=== PATIENT | female | born 1940 | race Caucasian/White ===

== ENCOUNTER 2018-03-18 14:49 | Inpatient (IN) | payer MEDICARE, MEDICAID ==
[2018-03-18] VITALS (32 sets, daily range): BP systolic 65–133; BP diastolic 45–80; BMI 19.8
[~2018-03-18] VITALS: Ht 154.9 cm; Wt 53.7 kg
--- NOTE | ~2018-03-18 | MORECARE ---
CASE MANAGEMENT DISCHARGE SUMMARY PATIENT: PRASANNA MCHUGH UNIT: [id number] ADM DATE: 03/18/18 AGE: 77 : 41 SEX: F ROOM/BED: D.2310 AUTHOR: WALKER,DOC PHYSICIAN: REFERRING PHYSICIAN: TJ PARRY MD DATE OF SERVICE: 03/20/18 Discharge Plan Patient Name: PRASANNA MCHUGH Facility: [facility]:[place] : 1940 Planned Disposition: Home Anticipated Discharge Date: Discharge Date: Expected LOS: Initial Reviewer: [email or web address] Initial Review Date: 03/18/2018 Generated: 03/20/18 4:16 pm Comments DCP- Discharge Planning Updated by [email or web address]: Tracy James on 03/20/18 2:[address] Patient Name: PRASANNA MCHUGH Admission Status: ER Accout number: [id number] Admission Date: 03-18-2018 : 1940 Admission Diagnosis:SEPSIS, UNSPECIFIED ORGANISM Attending: TJ PARRY Current LOS: 2 Anticipated DC Date: Planned Disposition: Home Primary Insurance: MEDICARE A & B Discharge Planning Comments: CM met with patient at bedside. Patient plans to return to her home with her son. Patient states that she lives with her son and family. No family here at this time. Patient states that she did have Home Health prior to admission but doesn't recall provider name. Patient denies any discharge needs at this time. CM will continue to follow and assist with discharge planning / needs. [employer] Layout: Tracy James DCPIA - Discharge Planning Initial Assessment Updated by [id number]: Tracy James on 03/20/18 3:07 pm * Is the patient Alert and Oriented? Yes * How many steps to enter\exit or inside your home? * PCP Dr. Mcgregor * Pharmacy Unknown - patient can't remember * Preadmission Environment Home with Family * ADLs Partial Dependent * Partial ADLs (Assistance needed) Bathing * Equipment Walker Wheelchair * List name and contact numbers for known caregivers / representatives who currently or will assist patient after discharge: Wanda Mcgovern - daughter [phone] Shalini -daughter - [phone] Demarcus son - [phone] Ayden hunter- [phone] * Verbal permission to speak to the caregivers and representatives has been obtained from the patient. N/A * Community resources currently utilized Home Health * Please name any agencies selected above. unknown provider * Additional services required to return to the preadmission environment? No * Can the patient safely return to the preadmission environment? Yes * Has this patient been hospitalized within the prior 30 days at any hospital? No Last DP export: 03/20/18 2:08 Patient Name: PRASANNA MCHUGH Page [id number] at 1516 All edits/amendments must be made on the electronic document DICTATION DATE: 03/20/181514 CENTRAL OFFICE WORKER: BAYRON 03/20/181514 RPT#: [id number] DC DATE: STATUS: ADM IN [facility] [address] [place] [address] END OF REPORT
--- NOTE | ~2018-03-18 | CN ---
PATIENT NAME:PRASANNA BLOOM MEDICAL RECORD: [id number] : 42 LOCATION:[facility]ael[address].2310 ADMIT DATE: 03/18/18 ACCOUNT: [id number] CONSULTING PHYSICIAN: VIC HARRIS MD REFERRING PHYSICIAN: TJ PARRY MD DATE OF CONSULTATION: 03/19/2018 CONSULT REQUESTING PHYSICIAN: Jagdeep Hare MD REASON FOR CONSULTATION: Pneumonia, pleural effusion, septic shock. HISTORY OF PRESENT ILLNESS: Ms. Bloom is a 77-year-old female who has mental status changes and confused. The patient was brought in from outside facility for advanced care. The patient had decreased mentation. Also, she was found out she has UTI and significant leukocytosis. The patient was hypotensive and bradycardic, required 2 pressors. Now, she is a bit more awake and alert, but still very confused. REVIEW OF SYSTEMS: Mainly in the history of present illness. PAST MEDICAL HISTORY: The detail is not obtainable. She has a history of dementia. PERSONAL AND SOCIAL HISTORY: The detail is not obtainable. FAMILY HISTORY: Noncontributory. PHYSICAL EXAMINATION: GENERAL: Now, the patient is lying comfortable. She is not in acute distress. VITAL SIGNS: The blood pressure is 98-101/55, pulse is 57, respiration is 19, temperature is 98.2, and SpO2 97% on 3 liters nasal cannula. HEENT: Conjunctivae are pink. Sclerae are not icteric. NECK: Supple, no JVD. CHEST: There are bilateral crackles. No wheezing. HEART: Rate and rhythm is regular, normal sound, no murmur. ABDOMEN: Soft, bowel sounds present. No hepatosplenomegaly. RECTAL: Deferred. EXTREMITIES: No cyanosis, no clubbing. There are 2+ pedal edema. CENTRAL NERVOUS SYSTEM: The patient is awake and alert. There are no obvious cranial nerve abnormalities, but the patient is confused. LABORATORY DATA: CBC: WBC 12.7, hemoglobin 11.4, hematocrit 32, platelet count is 93. Chemistry: Sodium 145, potassium 3.5, BUN is 11, creatinine 0.9. Lactic acid is 8.6. Ammonia level was 17. The albumin is 2.1. IMAGING: Chest radiograph, there are bilateral basilar infiltrate. There is a small left pleural effusion. The CT scan of the head was negative for any acute process. IMPRESSION: 1. Acute hypoxic respiratory failure. 2. Septic shock. 3. Urinary tract infection. 4. Bilateral pneumonia. 5. Community acquired pneumonia, possible aspiration pneumonia with the patient CONSULT REPORT [id number] PRASANNA BLOOM low mentation. 6. Lactic acidosis. 7. Left pleural effusion, possible parapneumonic; congestive heart failure, possible chronic systolic dysfunction. 8. Protein calorie malnutrition. RECOMMENDATION: 1. Continue vancomycin and Zosyn. The ID is already consulted. 2. IV fluid resuscitation. 3. Continue the pressor dopamine and Levophed to keep the systolic blood pressure above 90. 4. Follow up on the cultures. 5. DVT prophylaxis. 6. Follow up labs and chest radiograph. Discussed with Dr. Hare and Dr. Brunner. Thank you for involving me in the care of Ms. Bloom. TRANSINT:[id number] Voice Confirmation ID: [id number] DOCUMENT ID: [id number] VIC HARRIS MD at 1339 CC: [id number] DICTATION DATE: 03/19/18 1431 PREKINDERGARTEN TEACHER: 03/19/18 1646 ADM IN [facility] [address] [place] [address]
--- NOTE | ~2018-03-18 | MORECARE ---
CASE MANAGEMENT DISCHARGE SUMMARY PATIENT: PRASANNA MCHUGH UNIT: [id number] ADM DATE: 03/18/18 AGE: 77 : 41 SEX: F ROOM/BED: D.8303 AUTHOR: WALKER,DOC PHYSICIAN: REFERRING PHYSICIAN: TJ PARRY MD DATE OF SERVICE: 04/01/18 Discharge Plan Patient Name: PRASANNA MCHUGH Facility: [facility]:[place] : 1940 Planned Disposition: Home Anticipated Discharge Date: 03/31/18 Discharge Date: 03/31/2018 Expected LOS: 13 Initial Reviewer: [email or web address] Initial Review Date: 03/18/2018 Generated: 04/01/18 12:14 pm Comments DCP- Discharge Planning Updated by [email or web address]: Luz Saini on 03/31/18 9:[address] Patient Name: PRASANNA MCHUGH Encounter No: [id number] : 1940 Primary Insurance: MEDICARE A & B Anticipated DC Date: 03-31-2018 Planned Disposition: Home External Planned Provider: : DCP follow-up note: Patient and family in agreement with discharge plan. PATIENT TO GO HOME WITH DAUGHTER WHO LIVES IN [facility]. RN WILL NOTIFY DAUGHTER OF PATIENT'S DC TODAY. Case management will follow and assist as needed. Luz Saini DCP- Discharge Planning Updated by [email or web address]: Gt Rosas on 03/28/18 1:[address] Patient Name: PRASANNA MCHUGH Encounter No: [id number] : 1940 Primary Insurance: MEDICARE A & B Anticipated DC Date: Planned Disposition: INPATIENT REHAB PLANNED EXTERNAL PROVIDER: INPATIENT REHAB DCP follow-up note: CM RECEIVED TELEPHONE MESSAGE FROM SAMMIE TA, ; MESSAGE REPORTS SAMMIE TO BE PT'S DAUGHTER AND PT WILL BE GOING HOME WITH DAUGHTER TO [place] AT DISCHARGE. CM SPOKE TO PT IN ROOM WHO REPORTS AGREEMENT WITH PLAN AND THAT SHE WAS LIVING WITH HER SON PRIOR TO ADMISSION BUT SHE AND FAMILY WANT PT BACK WITH DAUGHTER IN [place], DAUGHTER TO PICK HER UP. PT REPORTS HER DAUGHTER IS "ALMOST A NURSE" AND HAS TAKEN CARE OF HER BEFORE AND WILL DO IT AGAIN UNTIL PT IS WELL ENOUGH TO GO HOME AGAIN. PT REPORTS IT IS OK TO DISCUSS HER CARE, TREATMENT AND DISCHARGE PLANNING WITH SAMMIE TA. CM CALLED SAMMIE FREIRE, ; SAMMIE REPORTS PT WILL DISCHARGE HOME WITH HER, DISCHARGE ADDRESS IS [address] [place] [address], [address]. SAMMIE WILL LINK TRAINER MAINTENANCE MAN PT AT DISCHARGE, IS A FOOD AND BEVERAGE SERVER AND WILL BE TAKING CARE OF PT 24 HOURS 7 DAYS PER WEEK. THEY WILL CONTINUE TO TAKE PT BACK TO HER PCP IN [facility]. PT'S DAUGHTER REQUESTS INPATIENT REHAB AT [facility] PRIOR TO PT'S DISCHARGE HOME WITH DAUGHTER. CM SPOKE TO PT IN ROOM WHO IS WILLING FOR REHAB AT INPATIENT REHAB PRIOR TO DISCHARGE HOME WITH HER DAUGHTER ADN FEELS SHE CAN PARTICIPATE IN THREE HOURS OF PROGRESSIVE THERAPY PER DAY. ORDER RECEIVED FOR INPATIENT REHAB PRESCREENING. CM WAITING COMPLETION OF INPATIENT REHAB PRESCREENING AND ADMISSION DETERMINATION FROM INPATIENT REHAB. Gt Rosas, CASE MANAGEMENT DCP- Discharge Planning Updated by [id number]: Gt Rosas on 03/28/18 9:[address] Patient Name: PRASANNA MCHUGH Encounter No: [id number] : 1940 Primary Insurance: MEDICARE A & B Anticipated DC Date: Planned Disposition: Home DCP follow-up note: CM RECEIVED CHART WHICH INDICATED PT HAD HOME HEALTH PRIOR TO HOSPITAL STAY PER CM NOTE. CM CALLED [employer], [employer] AND [employer] HOME HEALTH AGENCIES THAT SERVICE [facility], NONE HAD RECORD OF PT. CM CALLED [facility], , SPOKE TO NELLY WHO INFORMED CM THAT THEY DID HAVE PT RECENTLY BUT PT HAD BEEN DISCHARGED FROM HOME HEALTH CARE. [facility] WOULD ACCEPT BACK IF THERE IS A NEED AND WITH NEW HOME HEALTH ORDERS. PT PLANS TO DISCHARGE HOME WITH SON, SHE DOES NOT CURRENTLY HAVE HOME HEALTH SERVICES AND WILL REQUIRE NEW ORDERS AND ARRANGEMENT WITH [facility] IF HOME HEALTH SERVICES ARE NEEDED. CM TO CONTINUE TO FOLLOW AND ASSIST IF NEEDED. Gt Rosas, CASE MANAGEMENT DCP- Discharge Planning Updated by [email or web address]: Tracy James on 03/20/18 2:[address] Patient Name: PRASANNA MCHUGH Admission Status: ER Accout number: [id number] Admission Date: 03-18-2018 : 1940 Admission Diagnosis:SEPSIS, UNSPECIFIED ORGANISM Attending: TJ PARRY Current LOS: 2 Anticipated DC Date: Planned Disposition: Home Primary Insurance: MEDICARE A & B Discharge Planning Comments: CM met with patient at bedside. Patient plans to return to her home with her son. Patient states that she lives with her son and family. No family here at this time. Patient states that she did have Home Health prior to admission but doesn't recall provider name. Patient denies any discharge needs at this time. CM will continue to follow and assist with discharge planning / needs. Bakery Team Member: Tracy aJmes DCPIA - Discharge Planning Initial Assessment Updated by [email or web address]: Tracy James on 03/20/18 3:07 pm * Is the patient Alert and Oriented? Yes * How many steps to enter\\exit or inside your home? * PCP Dr. Mcgregor * Pharmacy Unknown - patient can't remember * Preadmission Environment Home with Family * ADLs Partial Dependent * Partial ADLs (Assistance needed) Bathing * Equipment Walker Wheelchair * List name and contact numbers for known caregivers / representatives who currently or will assist patient after discharge: Wanda Mcgovern - daughter [phone] Sammie -daughter - [phone] Kristopher- son - [phone] Ayden - son [phone] * Verbal permission to speak to the caregivers and representatives has been obtained from the patient. N/A * Community resources currently utilized Home Health * Please name any agencies selected above. unknown provider * Additional services required to return to the preadmission environment? No * Can the patient safely return to the preadmission environment? Yes * Has this patient been hospitalized within the prior 30 days at any hospital? No Coverage Notice Reviewer: [id number] Bijan Saini Notice Issued Date-Time: 03/31/2018 10:39 Notice Type: IM Discharge Notice Notice Delivered To: Patient Relationship to Patient: Self Rn Embedded Name: Delivery Method: HAND - Hand Delivered Renetta Days: Prior Verbal Notification: Recipient Understood Notice: Yes Recipient Signature: Yes Med Rec Note Co-signed by Attending: Coverage Notice Comment: IM SERVED. Last DP export: 03/31/18 9:44 Patient Name: PRASANNA MCHUGH Page 00107 at 1114 All edits/amendments must be made on the electronic document DICTATION DATE: 04/01/181112 RETIREMENT PLAN COUNSELOR: BAYRON 04/01/181112 RPT#: [id number] DC DATE:03/31/18 STATUS: DIS IN [address] [place] [address] END OF REPORT
--- NOTE | ~2018-03-18 | MORECARE ---
CASE MANAGEMENT DISCHARGE SUMMARY PATIENT: PRASANNA MCHUGH UNIT: [id number] ADM DATE: 03/18/18 AGE: 77 : 41 SEX: F ROOM/BED: D.2310 AUTHOR: SANDRA CARDOSO PHYSICIAN: REFERRING PHYSICIAN: TJ PARRY MD DATE OF SERVICE: 03/20/18 Discharge Plan Patient Name: PRASANNA MCHUGH [facility] [facility] 1940 Planned Disposition: Home Anticipated Discharge Date: Discharge Date: Expected LOS: Initial Reviewer: [email or web address] Initial Review Date: 03/18/2018 Generated: 03/20/18 4:08 pm DCPIA - Discharge Planning Initial Assessment Updated by [email or web address]: Tracy James on 03/20/18 3:07 pm * Is the patient Alert and Oriented? Yes * How many steps to enter\exit or inside your home? * PCP Dr. Mcgregor * Pharmacy Unknown - patient can't remember * Preadmission Environment Home with Family * ADLs Partial Dependent * Partial ADLs (Assistance needed) Bathing * Equipment Walker Wheelchair * List name and contact numbers for known caregivers / representatives who currently or will assist patient after discharge: Wanda Mcgovern - daughter [phone] Shalini -daughter - [phone] Kristopher son [phone] Ayden son [phone] * Verbal permission to speak to the caregivers and representatives has been obtained from the patient. N/A * Community resources currently utilized Home Health * Please name any agencies selected above. unknown provider * Additional services required to return to the preadmission environment? No * Can the patient safely return to the preadmission environment? Yes * Has this patient been hospitalized within the prior 30 days at any hospital? No Patient Name: PRASANNA MCHUGH Page 68437 at 1508 All edits/amendments must be made on the electronic document DICTATION DATE: 03/20/18 1507 WOOD BUFFER: BAYRON 03/20/18 1507 RPT#: [id number] DC DATE: STATUS: ADM IN [facility] [address] [place] [address] END OF REPORT
--- NOTE | ~2018-03-18 | MORECARE ---
CASE MANAGEMENT DISCHARGE SUMMARY PATIENT: PRASANNA MCHUGH UNIT: [id number] ADM DATE: 03/18/18 AGE: 77 : 41 SEX: F ROOM/BED: D.4541 AUTHOR: WALKER,DOC PHYSICIAN: REFERRING PHYSICIAN: TJ PARRY MD DATE OF SERVICE: 03/28/18 Discharge Plan Patient Name: PRASANNA MCHUGH Facility: [facility]:[place] : 1940 Planned Disposition: Home Anticipated Discharge Date: Discharge Date: Expected LOS: Initial Reviewer: [email or web address] Initial Review Date: 03/18/2018 Generated: 03/28/18 11:19 am Comments DCP- Discharge Planning Updated by [email or web address]: Gt Rosas on 03/28/18 9:[address] Patient Name: PRASANNA MCHUGH Encounter No: [id number] : 1940 Primary Insurance: MEDICARE A & B Anticipated DC Date: Planned Disposition: Home DCP follow-up note: CM RECEIVED CHART WHICH INDICATED PT HAD HOME HEALTH PRIOR TO HOSPITAL STAY PER CM NOTE. CM CALLED [employer], [employer] AND [employer] HOME HEALTH AGENCIES THAT SERVICE [facility], NONE HAD RECORD OF PT. CM CALLED [facility], , SPOKE TO NELLY WHO INFORMED CM THAT THEY DID HAVE PT RECENTLY BUT PT HAD BEEN DISCHARGED FROM HOME HEALTH CARE. [facility] WOULD ACCEPT BACK IF THERE IS A NEED AND WITH NEW HOME HEALTH ORDERS. PT PLANS TO DISCHARGE HOME WITH SON, SHE DOES NOT CURRENTLY HAVE HOME HEALTH SERVICES AND WILL REQUIRE NEW ORDERS AND ARRANGEMENT WITH [facility] IF HOME HEALTH SERVICES ARE NEEDED. CM TO CONTINUE TO FOLLOW AND ASSIST IF NEEDED. Gt Rosas CASE GEOR[place]ES DCP- Discharge Planning Updated by [email or web address]: Tracy James on 03/20/18 2:[address] Patient Name: PRASANNA MCHUGH Admission Status: ER Accout number: [id number] Admission Date: 03-18-2018 : 1940 Admission Diagnosis:SEPSIS, UNSPECIFIED ORGANISM Attending: TJ PARYR Current LOS: 2 Anticipated DC Date: Planned Disposition: Home Primary Insurance: MEDICARE A & B Discharge Planning Comments: CM met with patient at bedside. Patient plans to return to her home with her son. Patient states that she lives with her son and family. No family here at this time. Patient states that she did have Home Health prior to admission but doesn't recall provider name. Patient denies any discharge needs at this time. CM will continue to follow and assist with discharge planning / needs. Clothing Cutter: Tracy James DCPIA - Discharge Planning Initial Assessment Updated by [email or web address]: Tracy James on 03/20/18 3:07 pm * Is the patient Alert and Oriented? Yes * How many steps to enter\exit or inside your home? * PCP Dr. Mcgregor * Pharmacy Unknown - patient can't remember * Preadmission Environment Home with Family * ADLs Partial Dependent * Partial ADLs (Assistance needed) Bathing * Equipment Walker Wheelchair * List name and contact numbers for known caregivers / representatives who currently or will assist patient after discharge: Wanda Mcgovern - daughter [phone] Shalini -daughter - [phone] Kristopher- son - [phone] Ayden son [phone] * Verbal permission to speak to the caregivers and representatives has been obtained from the patient. N/A * Community resources currently utilized Home Health * Please name any agencies selected above. unknown provider * Additional services required to return to the preadmission environment? No * Can the patient safely return to the preadmission environment? Yes * Has this patient been hospitalized within the prior 30 days at any hospital? No Last DP export: 03/20/18 2:16 Patient Name: PRASANNA MCHUGH Page 61857 at 1019 All edits/amendments must be made on the electronic document DICTATION DATE: 03/28/18 1019 WORKERS COMPENSATION MANAGER: BAYRON 03/28/18 1019 RPT#: [id number] PR DATE: STATUS: ADM IN [facility] [address] [place] [address] END OF REPORT
--- NOTE | ~2018-03-18 | MORECARE ---
CASE MANAGEMENT DISCHARGE SUMMARY PATIENT: PRASANNA MCHUGH UNIT: [id number] ADM DATE: 03/18/18 AGE: 77 : 41 SEX: F ROOM/BED: D.6796 AUTHOR: WALKER,DOC PHYSICIAN: REFERRING PHYSICIAN: TJ PARRY MD DATE OF SERVICE: 03/31/18 Discharge Plan Patient Name: PRASANNA MCHUGH Facility: [facility]:[place] : 1940 Planned Disposition: Home Anticipated Discharge Date: 03/31/18 Discharge Date: Expected LOS: 13 Initial Reviewer: [id number] Initial Review Date: 03/18/2018 Generated: 03/31/18 11:44 am Comments DCP- Discharge Planning Updated by [email or web address]: Luz Saini on 03/31/18 9:[address] Patient Name: PRASANNA MCHUGH Encounter No: [id number] : 1940 Primary Insurance: MEDICARE A & B Anticipated DC Date: 03-31-2018 Planned Disposition: Home External Planned Provider: : DCP follow-up note: Patient and family in agreement with discharge plan. PATIENT TO GO HOME WITH DAUGHTER WHO LIVES IN [facility]. RN WILL NOTIFY DAUGHTER OF PATIENT'S DC TODAY. Case management will follow and assist as needed. Luz Saini DCP- Discharge Planning Updated by [id number]: Gt Rosas on 03/28/18 1:[address] Patient Name: PRASANNA MCHUGH Encounter No: [id number] : 1940 Primary Insurance: MEDICARE A & B Anticipated DC Date: Planned Disposition: INPATIENT REHAB PLANNED EXTERNAL PROVIDER: [facility] INPATIENT REHAB DCP follow-up note: CM RECEIVED TELEPHONE MESSAGE FROM SAMMIE TA, ; MESSAGE REPORTS SAMMIE TO BE PT'S DAUGHTER AND PT WILL BE GOING HOME WITH DAUGHTER TO [place] AT DISCHARGE. CM SPOKE TO PT IN ROOM WHO REPORTS AGREEMENT WITH PLAN AND THAT SHE WAS LIVING WITH HER SON PRIOR TO ADMISSION BUT SHE AND FAMILY WANT PT BACK WITH DAUGHTER IN [place], DAUGHTER TO PICK HER UP. PT REPORTS HER DAUGHTER IS "ALMOST A NURSE" AND HAS TAKEN CARE OF HER BEFORE AND WILL DO IT AGAIN UNTIL PT IS WELL ENOUGH TO GO HOME AGAIN. PT REPORTS IT IS OK TO DISCUSS HER CARE, TREATMENT AND DISCHARGE PLANNING WITH SAMMIE TA. CM CALLED SAMMIE FREIRE, ; SAMMIE REPORTS PT WILL DISCHARGE HOME WITH HER, DISCHARGE ADDRESS IS [address] [place] [address], [address]. SAMMIE WILL LONG CHAIN BEAMER PT AT DISCHARGE, IS A LABORATORY TECHNOLOGIST AND WILL BE TAKING CARE OF PT 24 HOURS 7 DAYS PER WEEK. THEY WILL CONTINUE TO TAKE PT BACK TO HER PCP IN [facility]. PT'S DAUGHTER REQUESTS INPATIENT REHAB AT [place] PRIOR TO PT'S DISCHARGE HOME WITH DAUGHTER. CM SPOKE TO PT IN ROOM WHO IS WILLING FOR REHAB AT [facility] INPATIENT REHAB PRIOR TO DISCHARGE HOME WITH HER DAUGHTER ADN FEELS SHE CAN PARTICIPATE IN THREE HOURS OF PROGRESSIVE THERAPY PER DAY. ORDER RECEIVED FOR INPATIENT REHAB PRESCREENING. CM WAITING COMPLETION OF INPATIENT REHAB PRESCREENING AND ADMISSION DETERMINATION FROM [facility] INPATIENT REHAB. Gt Rosas, CASE MANAGEMENT DCP- Discharge Planning Updated by [id number]: Gt Rosas on 03/28/18 9:[address] Patient Name: PRASANNA MCHUGH Encounter No: [id number] : 1940 Primary Insurance: MEDICARE A & B Anticipated DC Date: Planned Disposition: Home DCP follow-up note: CM RECEIVED CHART WHICH INDICATED PT HAD HOME HEALTH PRIOR TO HOSPITAL STAY PER CM NOTE. CM CALLED [facility], [facility] AND [facility] AGENCIES THAT SERVICE [facility], NONE HAD RECORD OF PT. CM CALLED [facility], , SPOKE TO NELLY WHO INFORMED CM THAT THEY DID HAVE PT RECENTLY BUT PT HAD BEEN DISCHARGED FROM HOME HEALTH CARE. [facility] WOULD ACCEPT BACK IF THERE IS A NEED AND WITH NEW HOME HEALTH ORDERS. PT PLANS TO DISCHARGE HOME WITH SON, SHE DOES NOT CURRENTLY HAVE HOME HEALTH SERVICES AND WILL REQUIRE NEW ORDERS AND ARRANGEMENT WITH [facility] IF HOME HEALTH SERVICES ARE NEEDED. CM TO CONTINUE TO FOLLOW AND ASSIST IF NEEDED. Gt Rosas, CASE MANAGEMENT DCP- Discharge Planning Updated by [id number]: Tracy James on 03/20/18 2:[address] Patient Name: PRASANNA MCHUGH Admission Status: ER Accout number: [id number] Admission Date: 03-18-2018 : 1940 Admission Diagnosis:SEPSIS, UNSPECIFIED ORGANISM Attending: TJ PARRY Current LOS: 2 Anticipated DC Date: Planned Disposition: Home Primary Insurance: MEDICARE A & B Discharge Planning Comments: CM met with patient at bedside. Patient plans to return to her home with her son. Patient states that she lives with her son and family. No family here at this time. Patient states that she did have Home Health prior to admission but doesn't recall provider name. Patient denies any discharge needs at this time. CM will continue to follow and assist with discharge planning / needs. Immigration Consultant: Tracy James DCPIA - Discharge Planning Initial Assessment Updated by [email or web address]: Tracy James on 03/20/18 3:07 pm * Is the patient Alert and Oriented? Yes * How many steps to enter\\exit or inside your home? * PCP Dr. Mcgregor * Pharmacy Unknown - patient can't remember * Preadmission Environment Home with Family * ADLs Partial Dependent * Partial ADLs (Assistance needed) Bathing * Equipment Walker Wheelchair * List name and contact numbers for known caregivers / representatives who currently or will assist patient after discharge: Wanda Mcgovern - daughter [phone] Sammie -daughter - [phone] Kristopher- son - [phone] Ayden son [phone] * Verbal permission to speak to the caregivers and representatives has been obtained from the patient. N/A * Community resources currently utilized Home Health * Please name any agencies selected above. unknown provider * Additional services required to return to the preadmission environment? No * Can the patient safely return to the preadmission environment? Yes * Has this patient been hospitalized within the prior 30 days at any hospital? No Coverage Notice Reviewer: [id number] Bijan Saini Notice Issued Date-Time: 03/31/2018 10:39 Notice Type: IM Discharge Notice Notice Delivered To: Patient Relationship to Patient: Self [employer] Chemistry Teacher Name: Delivery Method: HAND - Hand Delivered Renetta Days: Prior Verbal Notification: Recipient Understood Notice: Yes Recipient Signature: Yes Med Rec Note Co-signed by Attending: Coverage Notice Comment: IM SERVED. Last DP export: 03/28/18 1:44 Patient Name: PRASANNA MCHUGH Page [id number] at 1045 All edits/amendments must be made on the electronic document DICTATION DATE: 03/31/181043 PERMASTONE MECHANIC: BAYRON 03/31/181043 RPT#: [id number] DC DATE: STATUS: ADM IN [facility] [address] [place] [address] END OF REPORT
--- NOTE | ~2018-03-18 | MORECARE ---
CASE MANAGEMENT DISCHARGE SUMMARY PATIENT: PRASANNA MCHUGH UNIT: [id number] ADM DATE: 03/18/18 AGE: 77 : 41 SEX: F ROOM/BED: D.8090 AUTHOR: WALKER,DOC PHYSICIAN: REFERRING PHYSICIAN: TJ PARRY MD DATE OF SERVICE: 03/28/18 Discharge Plan Patient Name: PRASANNA MCHUGH [facility] [facility] 1940 Planned Disposition: Inpatient Rehab Anticipated Discharge Date: Discharge Date: Expected LOS: Initial Reviewer: [email or web address] Initial Review Date: 03/18/2018 Generated: 03/28/18 3:44 pm Comments DCP- Discharge Planning Updated by [id number]: Gt Rosas on 03/28/18 1:[address] Patient Name: PRASANNA MCHUGH Encounter No: [id number] : 1940 Primary Insurance: MEDICARE A & B Anticipated DC Date: Planned Disposition: INPATIENT REHAB PLANNED EXTERNAL PROVIDER: [facility] INPATIENT REHAB DCP follow-up note: CM RECEIVED TELEPHONE MESSAGE FROM SAMMIE TA, ; MESSAGE REPORTS SAMMIE TO BE PT'S DAUGHTER AND PT WILL BE GOING HOME WITH DAUGHTER TO [place] AT DISCHARGE. CM SPOKE TO PT IN ROOM WHO REPORTS AGREEMENT WITH PLAN AND THAT SHE WAS LIVING WITH HER SON PRIOR TO ADMISSION BUT SHE AND FAMILY WANT PT BACK WITH DAUGHTER IN [place], DAUGHTER TO PICK HER UP. PT REPORTS HER DAUGHTER IS "ALMOST A NURSE" AND HAS TAKEN CARE OF HER BEFORE AND WILL DO IT AGAIN UNTIL PT IS WELL ENOUGH TO GO HOME AGAIN. PT REPORTS IT IS OK TO DISCUSS HER CARE, TREATMENT AND DISCHARGE PLANNING WITH SAMMIE JDLUCY. CM CALLED SAMMIE MOUNA, ; SAMMIE REPORTS PT WILL DISCHARGE HOME WITH HER, DISCHARGE ADDRESS IS [address] [place] [address], [address]. 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 THEY WILL CONTINUE TO TAKE PT BACK TO HER PCP IN [facility]. PT'S DAUGHTER REQUESTS INPATIENT REHAB AT [place] PRIOR TO PT'S DISCHARGE HOME WITH DAUGHTER. CM SPOKE TO PT IN ROOM WHO IS WILLING FOR REHAB AT [facility] INPATIENT REHAB PRIOR TO DISCHARGE HOME WITH HER DAUGHTER ADN FEELS SHE CAN PARTICIPATE IN THREE HOURS OF PROGRESSIVE THERAPY PER DAY. ORDER RECEIVED FOR INPATIENT REHAB PRESCREENING. CM WAITING COMPLETION OF INPATIENT REHAB PRESCREENING AND ADMISSION DETERMINATION FROM [facility] INPATIENT REHAB. Gt Rosas CASE MANAGEMENT DCP- Discharge Planning Updated by [id number]: Gt Rosas on 03/28/18 9:[address] Patient Name: PRASANNA MCHUGH Encounter No: [id number] : 1940 Primary Insurance: MEDICARE A & B Anticipated DC Date: Planned Disposition: Home DCP follow-up note: CM RECEIVED CHART WHICH INDICATED PT HAD HOME HEALTH PRIOR TO HOSPITAL STAY PER CM NOTE. CM CALLED [facility], [facility] AND [facility] HOME [facility] AGENCIES THAT SERVICE [facility], NONE HAD RECORD OF PT. CM CALLED [facility], , SPOKE TO NELLY WHO INFORMED CM THAT THEY DID HAVE PT RECENTLY BUT PT HAD BEEN DISCHARGED FROM HOME HEALTH CARE. [facility] WOULD ACCEPT BACK IF THERE IS A NEED AND WITH NEW HOME HEALTH ORDERS. PT PLANS TO DISCHARGE HOME WITH SON, SHE DOES NOT CURRENTLY HAVE HOME HEALTH SERVICES AND WILL REQUIRE NEW ORDERS AND ARRANGEMENT WITH [facility] IF HOME HEALTH SERVICES ARE NEEDED. CM TO CONTINUE TO FOLLOW AND ASSIST IF NEEDED. SILAS Roman MANAGEMENT DCP- Discharge Planning Updated by [id number]: Tracy James on 03/20/18 2:[address] Patient Name: PRASANNA MCHUGH Admission Status: ER Accout number: [id number] Admission Date: 03-18-2018 : 1940 Admission Diagnosis:SEPSIS, UNSPECIFIED ORGANISM Attending: TJ PARRY Current LOS: 2 Anticipated DC Date: Planned Disposition: Home Primary Insurance: MEDICARE A & B Discharge Planning Comments: CM met with patient at bedside. Patient plans to return to her home with her son. Patient states that she lives with her son and family. No family here at this time. Patient states that she did have Home Health prior to admission but doesn't recall provider name. Patient denies any discharge needs at this time. CM will continue to follow and assist with discharge planning / needs. Continuous Absorption Process Operator: Tracy James DCPIA - Discharge Planning Initial Assessment Updated by [email or web address]: Tracy James on 03/20/18 3:07 pm * Is the patient Alert and Oriented? Yes * How many steps to enter\\exit or inside your home? * PCP Dr. Mcgregor * Pharmacy Unknown - patient can't remember * Preadmission Environment Home with Family * ADLs Partial Dependent * Partial ADLs (Assistance needed) Bathing * Equipment Walker Wheelchair * List name and contact numbers for known caregivers / representatives who currently or will assist patient after discharge: Wanda Mcgovern - daughter [phone] Sammie -daughter - [phone] Kristopher- son - [phone] Ayden - son- [phone] * Verbal permission to speak to the caregivers and representatives has been obtained from the patient. N/A * Community resources currently utilized Home Health * Please name any agencies selected above. unknown provider * Additional services required to return to the preadmission environment? No * Can the patient safely return to the preadmission environment? Yes * Has this patient been hospitalized within the prior 30 days at any hospital? No Last DP export: 03/28/18 9:19 Patient Name: PRASANNA MCHUGH Page [phone] at 1444 All edits/amendments must be made on the electronic document DICTATION DATE: 03/28/181443 HAND SANDER: BAYRON 03/28/181443 RPT#: [id number] OR DATE: STATUS: ADM IN [facility] [address] [place] [address] END OF REPORT
[2018-03-18 16:33] LABS: BASOPHILS 0.1 % (0-2); EOSINOPHILS 0.6 % (0-7); HEMATOCRIT 35.1 % (36.0-48.0); HEMOGLOBIN 11.6 g/dL (12-16); IMMATURE GRANULOCYTES 0.4 % (0-5); LYMPHOCYTES 17.4 % (15-50); MCH 35.5 pg (26.0-34.0); MCV 107.3 fL (80.0-100.0); MONOCYTES 7.4 % (2-11); NEUTROPHILS 74.1 % (40-80); PLATELET COUNT 67 10x3/uL (130-400); RBC 3.27 10x6/uL (4.00-5.40); RDW 13.5 % (11.5-14.5); WBC 6.9 10x3/uL (4.8-10.8)
[2018-03-18 16:35] LABS: PLATELET ESTIMATE DECREASED
[2018-03-18 16:46] LABS: INR 1.57 (0.85-1.17); PROTIME 18.2 SECONDS (11.6-15.0)
[2018-03-18 16:47] LABS: APTT 54.2 SECONDS (22.8-39.4)
[2018-03-18 18:41] LABS: ALBUMIN 1.5 g/dL (3.4-5.0); ALKALINE PHOSPHATASE 45 U/L (46-116); ALT (SGPT) 16 U/L (10-68); BILIRUBIN - TOTAL 0.91 mg/dL (0.2-1.3); CALC OSMOLALITY 294 mosm/kg (275-300); CARBON DIOXIDE 23.4 mmol/L (21.0-32.0); CHLORIDE - SERUM 105 mmol/L (98-107); CREATINE KINASE 305 UL (21-215); CREATININE - SERUM 1.4 mg/dL (0.6-1.3); GLUCOSE 197 mg/dL (74-106); POTASSIUM - SERUM 3.9 mmol/L (3.5-5.1); PROTEIN - SERUM 6.2 g/dL (6.4-8.2); SODIUM 142 mmol/L (136-145); UREA NITROGEN 31 mg/dL (7-18); eGFR NON AFRICAN AMERICAN 39 mL/min (90-120)
[2018-03-18 18:42] LABS: CKMB 5.5 U/L (0.0-3.6)
[2018-03-18 18:43] LABS: TROPONIN-I 0.505 ng/mL (0.000-0.060)
[2018-03-18 21:10] LABS: APPEARANCE CLOUDY (CLEAR); BILIRUBIN NEGATIVE (NEGATIVE); COLOR YELLOW (YELLOW); GLUCOSE NEGATIVE (NEGATIVE); KETONE NEGATIVE (NEGATIVE); NITRITE NEGATIVE (NEGATIVE); PROTEIN NEGATIVE (NEGATIVE); SPECIFIC GRAVITY 1.015 (1.005-1.020); UROBILINOGEN NORMAL (NORMAL)
[2018-03-18 21:12] LABS: BACTERIA MANY /hpf (NONE SEEN); RED CELLS - URINE 25-50 /hpf (0-5); WHITE CELLS - URINE >50 /hpf (0-5)
[2018-03-18 21:13] LABS: YEAST >1+ /hpf (NONE SEEN)
[2018-03-19] VITALS (92 sets, daily range): BP systolic 89–131; BP diastolic 42–70; BMI 21.7
[2018-03-19 03:43] LABS: BASOPHILS 0.1 % (0-2); EOSINOPHILS 0 % (0-7); HEMOGLOBIN 11.4 g/dL (12-16); IMMATURE GRANULOCYTES 0.2 % (0-5); LYMPHOCYTES 22.7 % (15-50); MCH 36.5 pg (26.0-34.0); MCHC 35.6 g/dL (31.0-37.0); MEAN PLATELET VOLUME 9.9 fL (7.4-10.4); RBC 3.12 10x6/uL (4.00-5.40); RDW 13.2 % (11.5-14.5)
[2018-03-19 03:51] LABS: MCV 102.6 fL (80.0-100.0); PLATELET COUNT 93 10x3/uL (130-400); WBC 12.7 10x3/uL (4.8-10.8)
[2018-03-19 04:02] LABS: ANION GAP 11.9 mmol/L (8-16); BILIRUBIN - TOTAL 0.95 mg/dL (0.2-1.3); CALCIUM 7.1 mg/dL (8.5-10.1); CARBON DIOXIDE 27.6 mmol/L (21.0-32.0); POTASSIUM - SERUM 3.5 mmol/L (3.5-5.1); PROTEIN - SERUM 6.7 g/dL (6.4-8.2)
[2018-03-19 04:03] LABS: ALBUMIN 2.1 g/dL (3.4-5.0); CREATININE - SERUM 0.9 mg/dL (0.6-1.3)
[2018-03-19] MEDS ORDERED: CARBIDOPA-LEVO1 EACH PO (19:21)
[2018-03-20] VITALS (92 sets, daily range): BP systolic 74–125; BP diastolic 42–520; Ht 154.9 cm; Wt 53.7 kg
[2018-03-20 04:26] LABS: BASOPHILS 0.1 % (0-2); EOSINOPHILS 0.1 % (0-7); HEMATOCRIT 35.1 % (36.0-48.0); HEMOGLOBIN 11.7 g/dL (12-16); IMMATURE GRANULOCYTES 0.3 % (0-5); LYMPHOCYTES 26.7 % (15-50); MCH 34.8 pg (26.0-34.0); MCHC 33.3 g/dL (31.0-37.0); MCV 104.5 fL (80.0-100.0); MEAN PLATELET VOLUME 9.9 fL (7.4-10.4); MONOCYTES 5.2 % (2-11); NEUTROPHILS 67.6 % (40-80); PLATELET COUNT 79 10x3/uL (130-400); RBC 3.36 10x6/uL (4.00-5.40); RDW 13.1 % (11.5-14.5)
[2018-03-20 04:41] LABS: WBC 7.1 10x3/uL (4.8-10.8)
[2018-03-20 04:56] LABS: ALBUMIN 1.9 g/dL (3.4-5.0); ANION GAP 9.4 mmol/L (8-16); BILIRUBIN - TOTAL 0.72 mg/dL (0.2-1.3); CALCIUM 7.1 mg/dL (8.5-10.1); CARBON DIOXIDE 30.4 mmol/L (21.0-32.0); CREATININE - SERUM 0.9 mg/dL (0.6-1.3); MAGNESIUM - SERUM 1.2 mg/dL (1.8-2.4); PHOSPHOROUS 2.1 mg/dL (2.5-4.9); POTASSIUM - SERUM 3.8 mmol/L (3.5-5.1); THYROID STIMULATING HORMONE 1.61 uIU/mL (0.36-3.74)
[2018-03-21] VITALS (42 sets, daily range): BP systolic 84–126; BP diastolic 48–67
[2018-03-22] VITALS (55 sets, daily range): BP systolic 76–149; BP diastolic 42–77
[2018-03-22 03:14] LABS: BASOPHILS 0.2 % (0-2); EOSINOPHILS 0.7 % (0-7); HEMATOCRIT 32.9 % (36.0-48.0); HEMOGLOBIN 11.3 g/dL (12-16); IMMATURE GRANULOCYTES 0.5 % (0-5); LYMPHOCYTES 29.7 % (15-50); MCH 34.3 pg (26.0-34.0); MCHC 34.3 g/dL (31.0-37.0); MEAN PLATELET VOLUME 9.4 fL (7.4-10.4); MONOCYTES 7.7 % (2-11); NEUTROPHILS 61.2 % (40-80); PLATELET COUNT 76 10x3/uL (130-400); RBC 3.29 10x6/uL (4.00-5.40); RDW 12.5 % (11.5-14.5); WBC 5.5 10x3/uL (4.8-10.8)
[2018-03-22 03:38] LABS: ALBUMIN 1.5 g/dL (3.4-5.0); ALKALINE PHOSPHATASE 63 U/L (46-116); ALT (SGPT) 17 U/L (10-68); BILIRUBIN - TOTAL 0.92 mg/dL (0.2-1.3); CALC OSMOLALITY 274 mosm/kg (275-300); CALCIUM 7.8 mg/dL (8.5-10.1); CARBON DIOXIDE 27.6 mmol/L (21.0-32.0); CHLORIDE - SERUM 103 mmol/L (98-107); CREATININE - SERUM 0.6 mg/dL (0.6-1.3); GLUCOSE 133 mg/dL (74-106); MAGNESIUM - SERUM 1.5 mg/dL (1.8-2.4); PHOSPHOROUS 2.9 mg/dL (2.5-4.9); POTASSIUM - SERUM 3.6 mmol/L (3.5-5.1); PRO BNP 3159 pg/mL (0-450); PROTEIN - SERUM 6.2 g/dL (6.4-8.2); SODIUM 137 mmol/L (136-145); UREA NITROGEN 11 mg/dL (7-18); eGFR NON AFRICAN AMERICAN > 90 mL/min (90-120)
[2018-03-23] VITALS (24 sets, daily range): BP systolic 72–148; BP diastolic 41–77
[2018-03-23 03:21] LABS: BASOPHILS 0.2 % (0-2); EOSINOPHILS 1.3 % (0-7); HEMATOCRIT 35.1 % (36.0-48.0); HEMOGLOBIN 12.3 g/dL (12-16); IMMATURE GRANULOCYTES 0.3 % (0-5); MCH 34.7 pg (26.0-34.0); MCV 99.2 fL (80.0-100.0); MEAN PLATELET VOLUME 9.2 fL (7.4-10.4); MONOCYTES 7.9 % (2-11); NEUTROPHILS 55.3 % (40-80); RBC 3.54 10x6/uL (4.00-5.40); RDW 12.2 % (11.5-14.5); WBC 6.1 10x3/uL (4.8-10.8)
[2018-03-23 03:29] LABS: PLATELET COUNT 100 10x3/uL (130-400)
[2018-03-23 03:38] LABS: CALC OSMOLALITY 272 mosm/kg (275-300); CALCIUM 8.5 mg/dL (8.5-10.1); CARBON DIOXIDE 32.4 mmol/L (21.0-32.0); CHLORIDE - SERUM 101 mmol/L (98-107); CREATININE - SERUM 0.6 mg/dL (0.6-1.3); GLUCOSE 122 mg/dL (74-106); POTASSIUM - SERUM 3.3 mmol/L (3.5-5.1); SODIUM 137 mmol/L (136-145); eGFR NON AFRICAN AMERICAN > 90 mL/min (90-120)
[2018-03-23 03:44] LABS: UREA NITROGEN 8 mg/dL (7-18)
[2018-03-24] VITALS (58 sets, daily range): BP systolic 72–134; BP diastolic 33–77
[2018-03-24 04:39] LABS: BASOPHILS 0.2 % (0-2); EOSINOPHILS 1.6 % (0-7); HEMATOCRIT 31.4 % (36.0-48.0); HEMOGLOBIN 10.7 g/dL (12-16); IMMATURE GRANULOCYTES 0.2 % (0-5); LYMPHOCYTES 42.6 % (15-50); MCH 34.4 pg (26.0-34.0); MCHC 34.1 g/dL (31.0-37.0); MEAN PLATELET VOLUME 9.3 fL (7.4-10.4); MONOCYTES 11.3 % (2-11); NEUTROPHILS 44.1 % (40-80); PLATELET COUNT 110 10x3/uL (130-400); RBC 3.11 10x6/uL (4.00-5.40); RDW 12.7 % (11.5-14.5)
[2018-03-24 04:47] LABS: WBC 4.3 10x3/uL (4.8-10.8)
[2018-03-24 04:58] LABS: ANION GAP 7.4 mmol/L (8-16); CALCIUM 8.5 mg/dL (8.5-10.1); CARBON DIOXIDE 33.7 mmol/L (21.0-32.0)
[2018-03-24 05:00] LABS: CREATININE - SERUM 0.8 mg/dL (0.6-1.3); POTASSIUM - SERUM 4.1 mmol/L (3.5-5.1)
[2018-03-25] VITALS (61 sets, daily range): BP systolic 62–137; BP diastolic 45–79
[2018-03-25 04:22] LABS: BASOPHILS 0.5 % (0-2); EOSINOPHILS 2.1 % (0-7); HEMATOCRIT 31.6 % (36.0-48.0); IMMATURE GRANULOCYTES 0.3 % (0-5); LYMPHOCYTES 50.9 % (15-50); MCH 34.7 pg (26.0-34.0); MCHC 34.8 g/dL (31.0-37.0); MCV 99.7 fL (80.0-100.0); MEAN PLATELET VOLUME 9.3 fL (7.4-10.4); MONOCYTES 11.4 % (2-11); NEUTROPHILS 34.8 % (40-80); PLATELET COUNT 119 10x3/uL (130-400); RBC 3.17 10x6/uL (4.00-5.40); RDW 12.7 % (11.5-14.5); WBC 3.8 10x3/uL (4.8-10.8)
[2018-03-25 04:30] LABS: CALCIUM 8.2 mg/dL (8.5-10.1); CARBON DIOXIDE 31.7 mmol/L (21.0-32.0); CHLORIDE - SERUM 106 mmol/L (98-107); CREATININE - SERUM 0.7 mg/dL (0.6-1.3); SODIUM 144 mmol/L (136-145); eGFR NON AFRICAN AMERICAN 86 mL/min (90-120)
[2018-03-25 04:36] LABS: CALC OSMOLALITY 287 mosm/kg (275-300); GLUCOSE 116 mg/dL (74-106); UREA NITROGEN 13 mg/dL (7-18)
[2018-03-26] VITALS (40 sets, daily range): BP systolic 61–145; BP diastolic 38–95
[2018-03-26 04:42] LABS: HEMATOCRIT 24.8 % (36.0-48.0); HEMOGLOBIN 8.6 g/dL (12-16); MCH 34.5 pg (26.0-34.0); MCHC 34.7 g/dL (31.0-37.0); MCV 99.6 fL (80.0-100.0); MEAN PLATELET VOLUME 8.9 fL (7.4-10.4); PLATELET COUNT 105 10x3/uL (130-400); RBC 2.49 10x6/uL (4.00-5.40); RDW 12.7 % (11.5-14.5); WBC 2.9 10x3/uL (4.8-10.8)
[2018-03-26 04:46] LABS: ALBUMIN 2.3 g/dL (3.4-5.0); CALC OSMOLALITY 287 mosm/kg (275-300); CALCIUM 7.9 mg/dL (8.5-10.1); CARBON DIOXIDE 30.2 mmol/L (21.0-32.0); CHLORIDE - SERUM 106 mmol/L (98-107); CREATININE - SERUM 0.7 mg/dL (0.6-1.3); GLUCOSE 120 mg/dL (74-106); MAGNESIUM - SERUM 1.2 mg/dL (1.8-2.4); PHOSPHOROUS 2.8 mg/dL (2.5-4.9); SODIUM 144 mmol/L (136-145); UREA NITROGEN 12 mg/dL (7-18); eGFR NON AFRICAN AMERICAN 86 mL/min (90-120)
[2018-03-26 04:57] LABS: POTASSIUM - SERUM 3.1 mmol/L (3.5-5.1)
[2018-03-26 05:44] LABS: EOSINOPHILS 3 % (0-7); LYMPHOCYTES 49 % (15-50); MONOCYTES 5 % (2-11); NEUTROPHILS 41 % (40-80); PLATELET ESTIMATE DECREASED
[2018-03-26 07:30] LABS: BASOPHILS 0.7 % (0-2); EOSINOPHILS 2.4 % (0-7); HEMATOCRIT 26.6 % (36.0-48.0); HEMOGLOBIN 9.1 g/dL (12-16); LYMPHOCYTES 43.4 % (15-50); MCH 34.5 pg (26.0-34.0); MCHC 34.2 g/dL (31.0-37.0); MCV 100.8 fL (80.0-100.0); MEAN PLATELET VOLUME 9.2 fL (7.4-10.4); MONOCYTES 12.8 % (2-11); NEUTROPHILS 40.7 % (40-80); RBC 2.64 10x6/uL (4.00-5.40); RDW 12.9 % (11.5-14.5)
[2018-03-26 07:31] LABS: PLATELET COUNT 83 10x3/uL (130-400)
[2018-03-27] VITALS (15 sets, daily range): BP systolic 96–148; BP diastolic 48–86
[2018-03-27 04:20] LABS: BASOPHILS 0.6 % (0-2); EOSINOPHILS 3.1 % (0-7); HEMATOCRIT 29.5 % (36.0-48.0); HEMOGLOBIN 9.9 g/dL (12-16); IMMATURE GRANULOCYTES 0.3 % (0-5); LYMPHOCYTES 44.6 % (15-50); MCH 32.4 pg (26.0-34.0); MCHC 33.6 g/dL (31.0-37.0); MEAN PLATELET VOLUME 9.5 fL (7.4-10.4); MONOCYTES 9.7 % (2-11); NEUTROPHILS 41.7 % (40-80); PLATELET COUNT 99 10x3/uL (130-400); RBC 3.06 10x6/uL (4.00-5.40); RDW 17.1 % (11.5-14.5); WBC 3.5 10x3/uL (4.8-10.8)
[2018-03-27 04:29] LABS: CALC OSMOLALITY 286 mosm/kg (275-300); CALCIUM 8.5 mg/dL (8.5-10.1); CARBON DIOXIDE 27.8 mmol/L (21.0-32.0); CHLORIDE - SERUM 108 mmol/L (98-107); CREATININE - SERUM 0.7 mg/dL (0.6-1.3); GLUCOSE 115 mg/dL (74-106); MAGNESIUM - SERUM 2.1 mg/dL (1.8-2.4); POTASSIUM - SERUM 4.1 mmol/L (3.5-5.1); SODIUM 144 mmol/L (136-145); UREA NITROGEN 11 mg/dL (7-18); eGFR NON AFRICAN AMERICAN 86 mL/min (90-120)
[2018-03-27 05:15] LABS: MCV 96.4 fL (80.0-100.0)
[2018-03-28 00:29] VITALS: BP 126/56
[2018-03-28 04:00] VITALS: BP 126/66
[2018-03-28 07:37] VITALS: BP 107/47
[2018-03-28 12:12] VITALS: BP 112/45
[2018-03-28 16:15] VITALS: BP 92/48
[2018-03-28 20:45] VITALS: BP 103/54
[2018-03-29 00:17] VITALS: BP 119/49
[2018-03-29 05:04] VITALS: BP 129/46
[2018-03-29 06:30] LABS: BASOPHILS 0.4 % (0-2); EOSINOPHILS 1.4 % (0-7); HEMATOCRIT 30.8 % (36.0-48.0); HEMOGLOBIN 10.4 g/dL (12-16); IMMATURE GRANULOCYTES 0.2 % (0-5); LYMPHOCYTES 44.6 % (15-50); MCH 32.5 pg (26.0-34.0); MCHC 33.8 g/dL (31.0-37.0); MCV 96.3 fL (80.0-100.0); MEAN PLATELET VOLUME 9.6 fL (7.4-10.4); MONOCYTES 6.3 % (2-11); NEUTROPHILS 47.1 % (40-80); PLATELET COUNT 113 10x3/uL (130-400); RDW 15.5 % (11.5-14.5); WBC 5.1 10x3/uL (4.8-10.8)
[2018-03-29 06:44] LABS: CALC OSMOLALITY 278 mosm/kg (275-300); CALCIUM 8.5 mg/dL (8.5-10.1); CARBON DIOXIDE 26.4 mmol/L (21.0-32.0); CHLORIDE - SERUM 107 mmol/L (98-107); CREATININE - SERUM 0.6 mg/dL (0.6-1.3); GLUCOSE 92 mg/dL (74-106); POTASSIUM - SERUM 3.4 mmol/L (3.5-5.1); SODIUM 141 mmol/L (136-145); UREA NITROGEN 8 mg/dL (7-18); eGFR NON AFRICAN AMERICAN > 90 mL/min (90-120)
[2018-03-29 09:10] VITALS: BP 119/50
[2018-03-29 12:14] VITALS: BP 92/56
[2018-03-29 16:18] VITALS: BP 114/58
[2018-03-29 20:00] VITALS: BP 129/69
[2018-03-30] VITALS: BP 142/73
[2018-03-30 04:00] VITALS: BP 135/54
[2018-03-30 05:28] LABS: BASOPHILS 0.5 % (0-2); EOSINOPHILS 2.7 % (0-7); HEMATOCRIT 31.4 % (36.0-48.0); HEMOGLOBIN 10.7 g/dL (12-16); IMMATURE GRANULOCYTES 0.2 % (0-5); LYMPHOCYTES 42.5 % (15-50); MCH 33.1 pg (26.0-34.0); MCHC 34.1 g/dL (31.0-37.0); MCV 97.2 fL (80.0-100.0); MEAN PLATELET VOLUME 9.4 fL (7.4-10.4); MONOCYTES 6.6 % (2-11); NEUTROPHILS 47.5 % (40-80); PLATELET COUNT 111 10x3/uL (130-400); RBC 3.23 10x6/uL (4.00-5.40); RDW 15.1 % (11.5-14.5); WBC 4.4 10x3/uL (4.8-10.8)
[2018-03-30 06:10] LABS: CALC OSMOLALITY 278 mosm/kg (275-300); CALCIUM 8.6 mg/dL (8.5-10.1); CARBON DIOXIDE 26.6 mmol/L (21.0-32.0); CHLORIDE - SERUM 106 mmol/L (98-107); CREATININE - SERUM 0.6 mg/dL (0.6-1.3); GLUCOSE 81 mg/dL (74-106); POTASSIUM - SERUM 3.6 mmol/L (3.5-5.1); SODIUM 141 mmol/L (136-145); UREA NITROGEN 10 mg/dL (7-18); eGFR NON AFRICAN AMERICAN > 90 mL/min (90-120)
[2018-03-30 08:07] VITALS: BP 126/73
[2018-03-30 11:32] VITALS: BP 115/51
[2018-03-30 15:39] VITALS: BP 110/53
[2018-03-30 20:30] VITALS: BP 120/48
[2018-03-31 00:30] VITALS: BP 131/69
[2018-03-31 04:30] VITALS: BP 126/61
[2018-03-31 04:49] LABS: BASOPHILS 0.5 % (0-2); EOSINOPHILS 2.7 % (0-7); HEMATOCRIT 30.1 % (36.0-48.0); HEMOGLOBIN 10.3 g/dL (12-16); LYMPHOCYTES 45.7 % (15-50); MCHC 34.2 g/dL (31.0-37.0); MCV 96.5 fL (80.0-100.0); MEAN PLATELET VOLUME 9.6 fL (7.4-10.4); MONOCYTES 7.3 % (2-11); NEUTROPHILS 43.8 % (40-80); PLATELET COUNT 107 10x3/uL (130-400); RBC 3.12 10x6/uL (4.00-5.40); WBC 3.7 10x3/uL (4.8-10.8)
[2018-03-31 05:03] LABS: CALC OSMOLALITY 277 mosm/kg (275-300); CALCIUM 8.4 mg/dL (8.5-10.1); CARBON DIOXIDE 23.3 mmol/L (21.0-32.0); CHLORIDE - SERUM 107 mmol/L (98-107); CREATININE - SERUM 0.5 mg/dL (0.6-1.3); GLUCOSE 98 mg/dL (74-106); SODIUM 140 mmol/L (136-145); UREA NITROGEN 9 mg/dL (7-18); eGFR NON AFRICAN AMERICAN > 90 mL/min (90-120)
[2018-03-31 05:04] LABS: POTASSIUM - SERUM 4.2 mmol/L (3.5-5.1)
[2018-03-31 08:16] VITALS: BP 105/58
[2018-03-31] MEDS ORDERED: PROTONIX40 MG PO (08:35)
[2018-03-31] MEDS ORDERED: IPRAT-ALBUT 0.5-3 ML UPD (08:35)
== END 2018-03-31 15:23 | disposition home or self-care (01) | DRG 871 ==
LOC: D.ER 14:49 → D.EDHOLD 15:37 → D.ICU 15:37 → D.M2 03-27 18:04
PROVIDERS: Family Medicine; Internal Medicine Nephrology; Internal Medicine Pulmonary Disease
PROC: 5A09357 Assistance with Respiratory Ventilation, Less than 24 Consecutive Hours, Continuous Positive Airway Pressure (ICD-10-PCS; principal; 2018-03-18)
DX: A41.9 Sepsis, unspecified organism (principal); R65.21 Severe sepsis with septic shock; J18.9 Pneumonia, unspecified organism; J96.01 Acute respiratory failure with hypoxia; G93.41 Metabolic encephalopathy; E43 Unspecified severe protein-calorie malnutrition; I50.31 Acute diastolic (congestive) heart failure; E87.2 Acidosis; N17.9 Acute kidney failure, unspecified; B37.49 Other urogenital candidiasis; J44.9 Chronic obstructive pulmonary disease, unspecified; I10 Essential (primary) hypertension; Z68.21 Body mass index [BMI] 21.0-21.9, adult; I11.0 Hypertensive heart disease with heart failure; I48.91 Unspecified atrial fibrillation; E83.42 Hypomagnesemia; E87.6 Hypokalemia; G20 Parkinson's disease; F02.80 Dementia in other diseases classified elsewhere, unspecified severity, without behavioral disturbance, psychotic disturbance, mood disturbance, and anxiety; R53.81 Other malaise; D64.9 Anemia, unspecified

== ENCOUNTER 2018-07-13 02:43 | Inpatient (IN) | payer MEDICARE ==
[~2018-07-13] VITALS: Ht 157.5 cm; Wt 49.1 kg
[2018-07-13] VITALS (29 sets, daily range): BP systolic 88–174; BP diastolic 42–78; BMI 21.2; BMI 20.5
--- NOTE | ~2018-07-13 | CN ---
PATIENT NAME:PRASANNA BLOOM MEDICAL RECORD: [id number] : 42 LOCATION:[facility].2305 ADMIT DATE: 07/13/18 ACCOUNT: [id number] CONSULTING PHYSICIAN: VIC HARRIS MD REFERRING PHYSICIAN: CHARLENE SAMS DO DATE OF CONSULTATION: 07/13/2018 CONSULT REQUESTING PHYSICIAN: Charlene Sams DO REASON FOR CONSULTATION: Bilateral pneumonia, pleural effusion. HISTORY OF PRESENT ILLNESS: Ms. Bloom is a 77-year-old female who was brought in over here from [place] for respiratory distress, hypotension, and bilateral pneumonia with pleural effusion. Initially, she required pressors to keep her blood pressure above 90. Now, she has improved. The patient is a very poor historian. History was taken by talking to the nursing staff and reviewing the patient's note. The patient does have pressure sores. REVIEW OF SYSTEMS: As in history of present illness. PAST MEDICAL HISTORY: 1. Dementia. 2. Possible COPD with a history of smoking and nicotine dependence in the past. 3. Hypertension. 4. CHF, chronic diastolic dysfunction. 5. Atrial fibrillation. 6. Pressure sores. 7. Osteoporosis. 8. Recurrent UTI. PAST SURGICAL HISTORY: Hysterectomy. ALLERGIES: SHE IS ALLERGIC TO SULFA AND CODEINE. MEDICATIONS: [employer] is reviewed. PERSONAL AND SOCIAL HISTORY: The patient is an ex-smoker. She is a nondrinker. FAMILY HISTORY: Noncontributory. PHYSICAL EXAMINATION: GENERAL: Now, the patient is lying comfortably in bed. She is not in acute distress. VITAL SIGNS: The blood pressure 113/55, pulse is 80, respiration is 20, temperature 99, and SpO2 is 95% on 3 liters nasal cannula. HEENT: Conjunctivae are pink. Sclerae are not icteric. NECK: Supple, no JVD. CHEST: The chest excursion is minimal on both sides. There are bilateral crackles. No wheezing. HEART: Rhythm regular, normal sound, no murmur. ABDOMEN: Soft, bowel sounds present. No hepatosplenomegaly. RECTAL: Deferred. EXTREMITIES: No cyanosis, no clubbing, no pedal edema. SKIN: She has a pressure sore. CONSULT REPORT [id number] PRASANNA BLOOM IMAGING: CT scan of the chest: There is bilateral infiltrate, left more than the right. There is a pleural effusion. LABORATORY DATA: CBC: WBC 13.1, hemoglobin 8.5, hematocrit 25.2, the platelet count is 42. Chemistry: Sodium 140, potassium is 4, BUN is 25, creatinine 0.9. IMPRESSION: 1. Acute hypoxic respiratory failure. 2. Bilateral pneumonia, left more than the right. Possible community-acquired pneumonia. 3. Pleural effusion. 4. Acute exacerbation of COPD. 5. Septic shock. 6. Gastroesophageal reflux disease. 7. Anemia. 8. Hypoalbuminemia. RECOMMENDATION: 1. Continue present empiric antibiotic. 2. Supplemental oxygen. 3. I will check the proBNP. 4. Follow up labs and chest radiograph. 5. Albuterol/ipratropium nebulizer. 6. Brovana/budesonide nebulizer. 7. Speech evaluation. Discussed with RN, RT, and Dr. Hooks. Dr. Sams, thank you for involving me in the care of Ms. Bloom. The critical care time is 50 minutes. TRANSINT:[id number] Voice Confirmation ID: [id number] DOCUMENT ID: [id number] VIC HARRIS MD CC: [id number] DICTATION DATE: 07/13/18 1146 PHOTO MACHINE OPERATOR: 07/13/18 1305 ADM IN [facility] [address] [place] [address]
[~2018-07-13 02:43] MED LIST: CARBIDOPA-LEVO1 EACH PO; IPRAT-ALBUT 0.5-3 ML UPD; PROTONIX40 MG PO
--- NOTE | 2018-07-13 04:15 | NUR ---
RECEIVED PT TO ROOM 2305 VIA STRETCHER ACCOMPANIED BY FAMILY AND ER STAFF. ICU MONITORS ESTABLISHED, ON 3LNC, SR ON CM, ALARMS ON.
[2018-07-13 04:48] LABS: BASOPHILS 0.1 % (0-2); EOSINOPHILS 0.4 % (0-7); HEMATOCRIT 25.2 % (36.0-48.0); HEMOGLOBIN 8.5 g/dL (12-16); IMMATURE GRANULOCYTES 0.3 % (0-5); LYMPHOCYTES 26.1 % (15-50); MCH 32.1 pg (26.0-34.0); MCHC 33.7 g/dL (31.0-37.0); MCV 95.1 fL (80.0-100.0); MEAN PLATELET VOLUME 10.4 fL (7.4-10.4); MONOCYTES 13.5 % (2-11); NEUTROPHILS 59.6 % (40-80); RBC 2.65 10x6/uL (4.00-5.40); RDW 13.4 % (11.5-14.5); WBC 13.1 10x3/uL (4.8-10.8)
[2018-07-13 04:53] LABS: PLATELET COUNT 42 10x3/uL (130-400)
[2018-07-13 04:56] LABS: ALBUMIN 1.8 g/dL (3.4-5.0); ALKALINE PHOSPHATASE 74 U/L (46-116); ALT (SGPT) 22 U/L (10-68); CALC OSMOLALITY 284 mosm/kg (275-300); CALCIUM 8.4 mg/dL (8.5-10.1); CARBON DIOXIDE 29.9 mmol/L (21.0-32.0); CHLORIDE - SERUM 104 mmol/L (98-107); CREATININE - SERUM 0.9 mg/dL (0.6-1.3); GLUCOSE 130 mg/dL (74-106); PROTEIN - SERUM 7.4 g/dL (6.4-8.2); SODIUM 140 mmol/L (136-145); UREA NITROGEN 25 mg/dL (7-18); eGFR NON AFRICAN AMERICAN 64 mL/min (90-120)
[2018-07-13 05:08] LABS: CKMB 0.2 U/L (0.0-3.6); CREATINE KINASE 9 UL (21-215)
[2018-07-13 05:09] LABS: TROPONIN-I < 0.017 ng/mL (0.000-0.060)
[2018-07-13 05:12] LABS: APTT 52.1 SECONDS (22.8-39.4); INR 1.27 (0.85-1.17); PROTIME 15.4 SECONDS (11.6-15.0)
--- NOTE | 2018-07-13 05:22 | NUR ---
DR SAMS NOTIFIED OF PLATELET COUNT OF 42 ON AM LAB, NO ORDERS RECIEVED AT THIS TIME.
[2018-07-13 05:26] LABS: PLATELET ESTIMATE DECREASED
--- NOTE | 2018-07-13 05:53 | NUR ---
PT RESTING IN BED WITH EYES CLOSED, LEVOPHED GTT AT 3 MCG/MIN, WILL CONT TO ATTEMPT TO TITRATE OFF.
--- NOTE | 2018-07-13 06:02 | NUR ---
DR SAMS IN TO SEE PT.
[2018-07-13 07:13] LABS: % SATURATION 20 % (15-55); IRON 34 ug/dl (35-150); TOTAL IRON BIND CAPACITY 166 ug/dl (260-445); UNSAT IRON BIND CAPACITY 132 ug/dl (150-375)
--- NOTE | 2018-07-13 09:00 | NUR ---
NO CHANGE NOTED
--- NOTE | 2018-07-13 11:00 | NUR ---
NO CHANGE NOTED
--- NOTE | 2018-07-13 13:00 | NUR ---
NO CHANGE NOTED.
--- NOTE | 2018-07-13 13:22 | HP ---
PATIENT: PRASANNA BLOOM MEDICAL RECORD: [id number] ACCOUNT: [id number] LOCATION:[facility] D.2305 : [birth year] ADMISSION DATE: 07/13/18 PCP: CHARLENE SAMS DO HISTORY AND PHYSICAL EXAMINATION HISTORY OF PRESENT ILLNESS: Ms. Bloom is a 77-year-old white female that appears older than her stated age, that presents to the Emergency Room in [place] with respiratory distress. Her chest x-ray reveals some bilateral infiltrates, no effusion, questionable mass in the left lung. She has a history of chronic smoking in the past. She is transferred here for higher level of care and pulmonary consult. She is requiring pressors to maintain her blood pressure. Her white count is 13,000. She is anemic at 8.5 and 25.2. Her platelets are also low at 42,000. Her sodium is 140, potassium 4.0, creatinine 0.9, glucose is 130, lactic acid slightly elevated at 2.2. Cardiac enzymes are normal. Albumin is low at 1.8. Blood cultures have been obtained. She is admitted to the ICU at this time. She is still requiring pressors. PAST MEDICAL HISTORY: Significant for some dementia, probable COPD. She was hospitalized here for a similar problem back in March. She had an echo at that time, which was 60% and no significant valve issues. Hypertension, history of CHF, atrial fib, pressure sores, osteoporosis, recurrent UTIs. PAST SURGICAL HISTORY: Includes a hysterectomy. ALLERGIES OR INTOLERANCES: INCLUDE SULFA AND CODEINE. HOME MEDICATIONS: Include DuoNeb updrafts, carbidopa 10/100 t.i.d., and pantoprazole 40 mg a day. FAMILY HISTORY: Noncontributory. SOCIAL HISTORY: The patient is not a very good historian. She does admit to being a smoker in the past, but states she no longer smokes. Denies alcohol use. REVIEW OF SYSTEMS: She denies any pain at this time. She denies any chest pain. She states she is not short of breath. She is requiring pressors. She denies any nausea or vomiting. She is probably a little confused. PHYSICAL EXAMINATION: GENERAL: Much older than her stated age, cachectic in appearance. HEART: Normal rate and rhythm. LUNGS: With diminished breath sounds and a few crackles. ABDOMEN: Soft. EXTREMITIES: Lower extremities reveal no edema. IMPRESSION: 1. Suspect torby-bn-jjvonht respiratory failure with probable pneumonia. 2. Probable dementia. 3. Chronic obstructive pulmonary disease. 4. Gastroesophageal reflux disease. 5. Normocytic anemia. 6. Thrombocytopenia. PLAN: Admit to ICU. Continue with pressors for now. Pulmonary consult. Await HISTORY AND PHYSICAL [id number] PRASANNA BLOOM blood cultures. She has already been started on vancomycin and Zosyn. We will add some pulmonary updrafts. DVT prophylaxis with SCDs. Check a hepatitis C panel. Check anemia panel. See orders for rest of plan. TRANSINT:[id number] Voice Confirmation ID: [id number] DOCUMENT ID: [id number] CHARLENE SAMS DO at 1322 CC: [id number] DICTATION DATE: 07/13/18621 JEWELRY MAKER: 07/13/18 0656 ADM IN [facility] [address] [place] [address]
--- NOTE | 2018-07-13 15:00 | NUR ---
NO CHANGE NOTED
[2018-07-13 18:05] LABS: APPEARANCE CLOUDY (CLEAR); BILIRUBIN NEGATIVE (NEGATIVE); COLOR DK YELLOW (YELLOW); EPITHELIAL CELLS 0-5 /hpf (0-5); GLUCOSE NEGATIVE (NEGATIVE); KETONE NEGATIVE (NEGATIVE); NITRITE NEGATIVE (NEGATIVE); PROTEIN 1+ mg/dL (NEGATIVE); RED CELLS - URINE RARE /hpf (0-5); SPECIFIC GRAVITY 1.005 (1.005-1.020); UROBILINOGEN NORMAL (NORMAL)
--- NOTE | 2018-07-13 19:10 | NUR ---
RECEIEVED PATIENT CARE - PATIENT DENIES NEEDS AT THIS TIME, SHIFT ASSESSMENT COMPLETED SEE FLOWSHEET - VSS CPOC
--- NOTE | 2018-07-13 20:09 | NUR ---
PATIENT CARE TRANSFERRED TO BENJAMIN SWANN RN
[2018-07-14] VITALS (24 sets, daily range): BP systolic 102–145; BP diastolic 55–97; Ht 157.5 cm; Wt 49.1 kg
--- NOTE | 2018-07-14 01:20 | NUR ---
PT REPOSITIONED FOR COMFORT SUPPORTED WITH PILLOWS, VSS, CONT POC.
[2018-07-14 02:46] LABS: BASOPHILS 0.2 % (0-2); EOSINOPHILS 0.8 % (0-7); HEMATOCRIT 21.7 % (36.0-48.0); IMMATURE GRANULOCYTES 0.2 % (0-5); LYMPHOCYTES 27.7 % (15-50); MCH 32.2 pg (26.0-34.0); MCHC 33.6 g/dL (31.0-37.0); MCV 95.6 fL (80.0-100.0); MEAN PLATELET VOLUME 11.3 fL (7.4-10.4); MONOCYTES 12.5 % (2-11); NEUTROPHILS 58.6 % (40-80); RBC 2.27 10x6/uL (4.00-5.40); RDW 13.5 % (11.5-14.5)
[2018-07-14 02:50] LABS: WBC 5.3 10x3/uL (4.8-10.8)
[2018-07-14 02:51] LABS: HEMOGLOBIN 7.3 g/dL (12-16); PLATELET COUNT 34 10x3/uL (130-400)
[2018-07-14 02:55] LABS: ALBUMIN 1.7 g/dL (3.4-5.0); ANION GAP 7.5 mmol/L (8-16); BILIRUBIN - TOTAL 0.6 mg/dL (0.2-1.3); CALCIUM 8.6 mg/dL (8.5-10.1); CREATININE - SERUM 0.9 mg/dL (0.6-1.3); POTASSIUM - SERUM 4.5 mmol/L (3.5-5.1); PROTEIN - SERUM 6.9 g/dL (6.4-8.2)
--- NOTE | 2018-07-14 03:15 | NUR ---
REASSESSMENT PER FLOWSHEET, NO ACUTE CHANGES NOTED. RE
--- NOTE | 2018-07-14 05:10 | NUR ---
1/2 UNITS OF PRBC'S INITIATED PER MD ORDER. WILL MONITOR CLOSELY.
--- NOTE | 2018-07-14 05:15 | NUR ---
DR HUGHES NOTIFIED OF CRITICAL HGB ON AM LAB, ORDERS RECEIVED.
[2018-07-15] VITALS (13 sets, daily range): BP systolic 99–138; BP diastolic 46–79
[2018-07-15 04:41] LABS: MCH 30.4 pg (26.0-34.0); MCHC 34.1 g/dL (31.0-37.0); MEAN PLATELET VOLUME 9.9 fL (7.4-10.4)
[2018-07-15 04:42] LABS: HEMOGLOBIN 10.9 g/dL (12-16); MCV 89.1 fL (80.0-100.0); PLATELET COUNT 54 10x3/uL (130-400); RBC 3.59 10x6/uL (4.00-5.40); WBC 2.7 10x3/uL (4.8-10.8)
[2018-07-15 04:47] LABS: INR 1.13 (0.85-1.17)
[2018-07-15 04:56] LABS: ALBUMIN 1.7 g/dL (3.4-5.0); ALKALINE PHOSPHATASE 107 U/L (46-116); C-REACTIVE PROTEIN 4.9 mg/dL (0.0-0.9); CALCIUM 8.4 mg/dL (8.5-10.1); CARBON DIOXIDE 29.8 mmol/L (21.0-32.0); CHLORIDE - SERUM 104 mmol/L (98-107); CREATININE - SERUM 0.7 mg/dL (0.6-1.3); GLUCOSE 98 mg/dL (74-106); MAGNESIUM - SERUM 1.5 mg/dL (1.8-2.4); PHOSPHOROUS 3.2 mg/dL (2.5-4.9); POTASSIUM - SERUM 4.4 mmol/L (3.5-5.1); SODIUM 137 mmol/L (136-145); eGFR NON AFRICAN AMERICAN 86 mL/min (90-120)
[2018-07-15 04:58] LABS: CALC OSMOLALITY 274 mosm/kg (275-300); UREA NITROGEN 14 mg/dL (7-18)
[2018-07-15 05:00] LABS: ALT (SGPT) 8 U/L (10-68)
[2018-07-15 05:16] LABS: EOSINOPHILS 3 % (0-7); LYMPHOCYTES 33 % (15-50); MONOCYTES 12 % (2-11); NEUTROPHILS 52 % (40-80); PLATELET ESTIMATE DECREASED
--- NOTE | 2018-07-15 09:18 | NUR ---
PATIENT IS MUCH MORE CONFUSED THIS AM COMPAIRED TO THIS PAST WEEKEND. SHE STATES SHE DOES NOT WANT TO WAKE THE OTHER PEOPLE AND SHE NEEDS TO GET UP AND COOK BREAKFAST. APPEARS TO REORIENTATE AND THEN REVERTS QUICKLY BACK TO PREVIOUS CONFUSED STATE.
--- NOTE | 2018-07-15 09:55 | NUR ---
Nutrition follow-up: Diet: Low sodium with nectar thick liquids; Ensure TID PO intake fair Pt more confused today per nursing Labs reviewed Wt: 108# - pt weighed 118# in March 2018. Due to above, pt is now assessed with severe malnutrition of chronic illness R/T COPD with multiple hospital admits AEB ~10% weight loss in 3 months; < 75% intake of estimated energy needs for > 1 month AEB wt loss. Will need nutrition support started if pt continues to loes weight RDN following.
--- NOTE | 2018-07-15 11:16 | NUR ---
Pt admitted to hospital 07/13/18 from home. The following skin issues were present on admission: Right hip: A half dollar sized swelled area with 1cm x 1cm center which is discolored. Discolored area does not ben. No open area, no drainage. Pt does report tenderness to site. Covered the area with mepilex foam for protection/cushion. Also repositioned pt onto her left side. Sacrum/coccyx/buttocks: Entire area measures 11cm x 8cm it is nonblanchable red. (Stage 1 pressure injury). Sacrum: 2cm x 2cm x deep purple tissue (deep tissue injury) Right buttock: 1cm x 1cm x deep purple tissue (deep tissue injury) This entire area was covered with mepilex sacral dressing for protection and cushion. Pt was repositioned as stated above. Bilateral heels: Nonblanchable redness and boggy (stage 1 pressure injuries). Skin barrier wipes were used to cover heels for protection. Recommendations: -Sacrum/coccyx/buttocks: mepilex sacral dressing -Turn/reposition every 2 hours -Right hip: mepilex foam/keep pt positioned off her hip area -bilateral heels: use skin barrier wipe q shift to provide protective barrier. Keep heels elevated off the bed/pillow - use pillow between knees when turned on her side. Wound care will continue monitoring.
[2018-07-15 12:12] LABS: FOLATE (FOLIC ACID) - SERUM >20.0 ng/mL (>3.0)
--- NOTE | 2018-07-15 13:58 | NUR ---
RECEIVED PT TO ROOM 2108 VIA BED, ORIENTED AND FAMILY TO ROOM AND CALL LIGHT. PT DENIES ANY NEEDS AT THIS TIME. CALL LIGHT IN REACH, NAD NOTED, WILL CONTINUE PLAN OF CARE.
--- NOTE | 2018-07-15 17:35 | NUR ---
CALLED [facility] AND SPOKE WITH NICK ARNOLD HIM THAT I NEED IRON BAG FOR PT.
--- NOTE | 2018-07-15 19:22 | NUR ---
RECIEVED LYING IN BED WITH EYES OPEN AND FAMILY AT BEDSIDE. ALERT AND ORIENTED TO PERSON ONLY. NPO AND AWAITING ULTRA SOUND. TELEMETRY IN PLACE. IV TO LEFT AC WITH FERRITIN INFUSING. IV SITE COVERED TO PREVENT PT FROM PULLING IT OUT. DSG TO COCCYX CDI. HEELS SPRING AND FLOATED ON PILLOWS. F/C PATENT WITH CLEAR YELLOW URINE DRAINING TO BEDSIDE DRAINAGE BAG. NO S/S OF DISTRESS OBSERVED.
[2018-07-16 03:08] LABS: HEPATITIS C ANTIBODY 0.2 S/CO RAT (0.0-0.9)
[2018-07-16 03:39] VITALS: BP 115/70
[2018-07-16 07:31] LABS: BASOPHILS 0.5 % (0-2); HEMATOCRIT 32.1 % (36.0-48.0); HEMOGLOBIN 10.8 g/dL (12-16); IMMATURE GRANULOCYTES 1.6 % (0-5); LYMPHOCYTES 41.7 % (15-50); MCH 30.8 pg (26.0-34.0); MCHC 33.6 g/dL (31.0-37.0); MEAN PLATELET VOLUME 10.4 fL (7.4-10.4); MONOCYTES 13.8 % (2-11); NEUTROPHILS 39.4 % (40-80); RBC 3.51 10x6/uL (4.00-5.40)
[2018-07-16 07:37] LABS: MCV 91.5 fL (80.0-100.0); PLATELET COUNT 106 10x3/uL (130-400); WBC 3.7 10x3/uL (4.8-10.8)
[2018-07-16 07:54] LABS: APTT 61.1 SECONDS (22.8-39.4); INR 1.22 (0.85-1.17); PROTIME 14.9 SECONDS (11.6-15.0)
[2018-07-16 08:02] LABS: MAGNESIUM - SERUM 1.6 mg/dL (1.8-2.4)
[2018-07-16 08:54] VITALS: BP 135/64
[2018-07-16 08:54] LABS: CALC OSMOLALITY 277 mosm/kg (275-300); CALCIUM 8.7 mg/dL (8.5-10.1); CARBON DIOXIDE 28.3 mmol/L (21.0-32.0); CHLORIDE - SERUM 105 mmol/L (98-107); CREATININE - SERUM 0.7 mg/dL (0.6-1.3); GLUCOSE 92 mg/dL (74-106); POTASSIUM - SERUM 4.3 mmol/L (3.5-5.1); SODIUM 139 mmol/L (136-145); UREA NITROGEN 12 mg/dL (7-18); eGFR NON AFRICAN AMERICAN 86 mL/min (90-120)
--- NOTE | 2018-07-16 09:00 | NUR ---
PT RESTING IN BED, DAUGHTER AT BEDSIDE. AM MEDS GIVEN ORDERED. SHIFT ASSESSMENT PERFORMED. DENIES PAIN AT THIS TIME, WILL CONT TO FOLLOW PLAN OF CARE
[2018-07-16 11:33] VITALS: BP 99/56
--- NOTE | 2018-07-16 15:00 | NUR ---
CONDE CATHETER REMOVED VIA NURSE DRIVEN PROTOCOL. PT TOLERATED WELL. WILL CONT TO FOLLOW PLAN OF CARE
--- NOTE | 2018-07-16 16:45 | MORECARE ---
CASE MANAGEMENT DISCHARGE SUMMARY PATIENT: PRASANNA MCHUGH UNIT: [id number] ADM DATE: 07/13/18 AGE: 77 : 41 SEX: F ROOM/BED: D.2107 AUTHOR: SANDRA CARDOSO PHYSICIAN: REFERRING PHYSICIAN: CHARLENE SAMS DO DATE OF SERVICE: 07/16/18 Discharge Plan Patient Name: PRASANNA MCHUGH Facility: [facility]:[place] : 1940 Planned Disposition: Home with Home Health Anticipated Discharge Date: Discharge Date: Expected LOS: Initial Reviewer: [email or web address] Initial Review Date: 07/16/2018 Generated: 07/16/18 5:45 pm DCPIA - Discharge Planning Initial Assessment Updated by [email or web address]: Gt Rosas on 07/16/18 4:44 pm * Is the patient Alert and Oriented? Yes * How many steps to enter\exit or inside your home? * PCP DR. RAVI * Pharmacy [facility] IN [facility] * Preadmission Environment Home with Family * ADLs Partial Dependent * Partial ADLs (Assistance needed) Bathing Medication Management * Equipment Walker Wheelchair * Other Equipment NO MEDICAL EQUIPMENT PROVIDER PREFERENCE * List name and contact numbers for known caregivers / representatives who currently or will assist patient after discharge: BIBI SUE, DTR, * Verbal permission to speak to the caregivers and representatives has been obtained from the patient. N/A * Community resources currently utilized Home Health * Please name any agencies selected above. [facility] * Additional services required to return to the preadmission environment? No * Can the patient safely return to the preadmission environment? Yes * Has this patient been hospitalized within the prior 30 days at any hospital? No Patient Name: PRASANNA MCHUGH Page [id number] at 1645 All edits/amendments must be made on the electronic document DICTATION DATE: 07/16/181643 BREWING TECHNICIAN: BAYRON 07/16/181643 RPT#: [id number] DC DATE: STATUS: ADM IN [facility] [address] [place] [address] END OF REPORT
--- NOTE | 2018-07-16 17:00 | MORECARE ---
CASE MANAGEMENT DISCHARGE SUMMARY PATIENT: PRASANNA MCHUGH UNIT: [id number] ADM DATE: 07/13/18 AGE: 77 : 41 SEX: F ROOM/BED: D.2107 AUTHOR: WALKER,DOC PHYSICIAN: REFERRING PHYSICIAN: CHARLENE SAMS DO DATE OF SERVICE: 07/16/18 Discharge Plan Patient Name: PRASANNA MCHUGH Facility: [facility]:[place] : 1940 Planned Disposition: Home with Home Health Anticipated Discharge Date: Discharge Date: Expected LOS: Initial Reviewer: [email or web address] Initial Review Date: 07/16/2018 Generated: 07/16/18 6:00 pm Comments DCP- Discharge Planning Updated by [email or web address]: Gt Rosas on 07/16/18 3:[address] Patient Name: PRASANNA MCHUGH Admission Status: ER Accout number: [id number] Admission Date: 07-13-2018 : 1940 Admission Diagnosis:ACUTE RESPIRATORY DISTRESS Attending: CHARLENE SAMS Current LOS: 3 Anticipated DC Date: Planned Disposition: Home with Home Health Primary Insurance: MEDICARE A & B PLANNED EXTERNAL PROVIDER: [facility] Discharge Planning Comments: CM MET WITH PT IN ROOM TO DISCUSS DISCHARGE PLANNING AND NEEDS. PT REPORTS LIVING AT HOME DEPENDENTLY WITH ADULT DAUGHTER. PT HAS WALKER AND WHEELCHAIR WITH NO MEDICAL EQUIPMENT PROVIDER PREFERENCE. PT ALSO REPORTS HAVING HOME OXYGEN SHE USES AT NIGHT ONLY. PT HAS HOME HEALTH WITH [facility]. CM DICUSSED AVAILABILITY OF HOME HEALTH, REHAB SERVICES AND MEDICAL EQUIPMENT. PT DENIES DISCHARGE NEEDS, REPORTS HER DAUGHTER WILL PICK HER UP FOR DISCHARGE HOME. FOR DISCHARGE HOME AND RESUPTION OF HOME HEALTH SERVICES, NOTIFY [facility] AT [phone], FAX DISCHARGE INFORMATION TO [facility] AT [phone]. Educational Manager: Gt Rosas DCPIA - Discharge Planning Initial Assessment Updated by [email or web address]: Gt Rosas on 07/16/18 4:44 pm * Is the patient Alert and Oriented? Yes * How many steps to enter\exit or inside your home? * PCP DR. RAVI * Pharmacy [facility] IN [place] * Preadmission Environment Home with Family * ADLs Partial Dependent * Partial ADLs (Assistance needed) Bathing Medication Management * Equipment Walker Wheelchair * Other Equipment NO MEDICAL EQUIPMENT PROVIDER PREFERENCE * List name and contact numbers for known caregivers / representatives who currently or will assist patient after discharge: BIBI SUE, DTR, * Verbal permission to speak to the caregivers and representatives has been obtained from the patient. N/A * Community resources currently utilized Home Health * Please name any agencies selected above. [facility] * Additional services required to return to the preadmission environment? No * Can the patient safely return to the preadmission environment? Yes * Has this patient been hospitalized within the prior 30 days at any hospital? No Last DP export: 07/16/18 3:45 pm Patient Name: PRASANNA MCHUGH Page [phone] at 1700 All edits/amendments must be made on the electronic document DICTATION DATE: 07/16/181658 COUNSELOR CAMP: BAYRON 07/16/181658 RPT#: [id number] DC DATE: STATUS: ADM IN [facility] [address] [place] [address] END OF REPORT
[2018-07-16 17:16] VITALS: BP 143/70
--- NOTE | 2018-07-16 19:00 | NUR ---
PT IN BED AND BED IS LOW DAUGHTER IS WITH PT AND IS ASSISTING WITH CARE TURNING OFTEN AND HELP WITH BED CHANGE..CALL LIGHT IS WITH DAUGHTER THICKENED LIQUIDS FOR PT PRESENT LCTA DENIES OTHER NEED
--- NOTE | 2018-07-16 19:06 | NUR ---
BLADDER SCANNED PT. PT HAD 280ML OF URINE. NOTIFIED BEAUTY OPERATOR APPRENTICE NURSE TO WATCH FOR URINE OUTPUT SINCE CONDE WAS REMOVED THIS AFTERNOON.
--- NOTE | 2018-07-16 19:09 | NUR ---
PT DID NOT HAVE A BM ON THIS SHIFT, PASSED ON STOOL CULTURE TO PREBOARDER NURSE
[2018-07-16 19:55] VITALS: BP 101/51
[2018-07-16 23:55] VITALS: BP 112/57
--- NOTE | 2018-07-17 02:53 | NUR ---
I have reviewed this patient and I concur with the Shift Assessment completed by the Licensed Practical Nurse today this shift.
[2018-07-17 03:30] VITALS: BP 125/62
[2018-07-17 06:51] LABS: ALBUMIN 1.7 g/dL (3.4-5.0); ALKALINE PHOSPHATASE 88 U/L (46-116); BILIRUBIN - TOTAL 0.59 mg/dL (0.2-1.3); CALC OSMOLALITY 282 mosm/kg (275-300); CALCIUM 8.6 mg/dL (8.5-10.1); CARBON DIOXIDE 28.3 mmol/L (21.0-32.0); CHLORIDE - SERUM 107 mmol/L (98-107); CREATININE - SERUM 0.6 mg/dL (0.6-1.3); GLUCOSE 85 mg/dL (74-106); MAGNESIUM - SERUM 1.9 mg/dL (1.8-2.4); PROTEIN - SERUM 6.9 g/dL (6.4-8.2); SODIUM 142 mmol/L (136-145); eGFR NON AFRICAN AMERICAN > 90 mL/min (90-120)
[2018-07-17 07:08] LABS: ALT (SGPT) < 6 U/L (10-68); UREA NITROGEN 16 mg/dL (7-18)
[2018-07-17] MEDS ORDERED: LEVAQUIN750 MG PO (08:17)
[2018-07-17] MEDS ORDERED: PULMICORT0.25 MG/1 UPD (08:18)
[2018-07-17 09:00] VITALS: BP 120/57
--- NOTE | 2018-07-17 10:00 | NUR ---
TO SURGERY VIA BED.
--- NOTE | 2018-07-17 11:15 | NUR ---
RETURNED TO ROOM VIA BED. A/A/OX4. DRAIN IN PLACE WITH JASPER 300CC DARK BROWN DRAINAGE. CONDE PATENT AND DRAINING DARK GABBY URINE. NO REQUESTS FROM PT AND DENIES ANY PAIN.
[2018-07-17 12:17] LABS: HEPARIN INDUCED PLATELET AB 0.27 OD (0.000-0.400)
--- NOTE | 2018-07-17 15:36 | NUR ---
I have reviewed this patient and I concur with the Shift Assessment completed by the Licensed Practical Nurse today this shift.
--- NOTE | 2018-07-17 16:57 | MORECARE ---
CASE MANAGEMENT DISCHARGE SUMMARY PATIENT: PRASANNA MCHUGH UNIT: [id number] ADM DATE: 07/13/18 AGE: 77 : 41 SEX: F ROOM/BED: D.4239 AUTHOR: WALKER,DOC PHYSICIAN: REFERRING PHYSICIAN: CHARLENE SAMS DO DATE OF SERVICE: 07/17/18 Discharge Plan Patient Name: PRASANNA MCHUGH Facility: [facility]:[place] : 1940 Planned Disposition: Home with Home Health Anticipated Discharge Date: 07/17/18 Discharge Date: Expected LOS: 4 Initial Reviewer: [email or web address] Initial Review Date: 07/16/2018 Generated: 07/17/18 5:56 pm Comments DCP- Discharge Planning Updated by [email or web address]: Gt Rosas on 07/16/18 3:[address] Patient Name: PRASANNA MCHUGH Admission Status: ER Accout number: [id number] Admission Date: 07-13-2018 : 1940 Admission Diagnosis:ACUTE RESPIRATORY DISTRESS Attending: CHARLENE SAMS Current LOS: 3 Anticipated DC Date: Planned Disposition: Home with Home Health Primary Insurance: MEDICARE A & B PLANNED EXTERNAL PROVIDER: [facility] Discharge Planning Comments: CM MET WITH PT IN ROOM TO DISCUSS DISCHARGE PLANNING AND NEEDS. PT REPORTS LIVING AT HOME DEPENDENTLY WITH ADULT DAUGHTER. PT HAS WALKER AND WHEELCHAIR WITH NO MEDICAL EQUIPMENT PROVIDER PREFERENCE. PT ALSO REPORTS HAVING HOME OXYGEN SHE USES AT NIGHT ONLY. PT HAS HOME HEALTH WITH [facility]. CM DICUSSED AVAILABILITY OF HOME HEALTH, REHAB SERVICES AND MEDICAL EQUIPMENT. PT DENIES DISCHARGE NEEDS, REPORTS HER DAUGHTER WILL PICK HER UP FOR DISCHARGE HOME. FOR DISCHARGE HOME AND RESUPTION OF HOME HEALTH SERVICES, NOTIFY [facility] AT [phone], FAX DISCHARGE INFORMATION TO [facility] AT [phone]. Belt Loop Cutter: Gt Rosas DCPIA - Discharge Planning Initial Assessment Updated by [email or web address]: Gt Rosas on 07/16/18 4:44 pm * Is the patient Alert and Oriented? Yes * How many steps to enter\exit or inside your home? * PCP DR. RAVI * Pharmacy [facility] IN [facility] * Preadmission Environment Home with Family * ADLs Partial Dependent * Partial ADLs (Assistance needed) Bathing Medication Management * Equipment Walker Wheelchair * Other Equipment NO MEDICAL EQUIPMENT PROVIDER PREFERENCE * List name and contact numbers for known caregivers / representatives who currently or will assist patient after discharge: BIBI SUE, DTR, * Verbal permission to speak to the caregivers and representatives has been obtained from the patient. N/A * Community resources currently utilized Home Health * Please name any agencies selected above. [facility] * Additional services required to return to the preadmission environment? No * Can the patient safely return to the preadmission environment? Yes * Has this patient been hospitalized within the prior 30 days at any hospital? No Coverage Notice Reviewer: [email or web address] Bijan Rosas Notice Issued Date-Time: 07/17/2018 8:35 Notice Type: IM Discharge Notice Notice Delivered To: Patient Relationship to Patient: Commissary Production Supervisor Name: Delivery Method: HAND - Hand Delivered Renetta Days: Prior Verbal Notification: Recipient Understood Notice: Yes Recipient Signature: Yes Med Rec Note Co-signed by Attending: Coverage Notice Comment: Last DP export: 07/16/18 4:00 pm Patient Name: PRASANNA MCHUGH Page 55715 at 1657 All edits/amendments must be made on the electronic document DICTATION DATE: 07/17/181655 MARBLE INSTALLER: BAYRON 07/17/181655 RPT#: [id number] DC DATE: STATUS: ADM IN [facility] [address] [place] [address] END OF REPORT
--- NOTE | 2018-07-17 17:06 | MORECARE ---
CASE MANAGEMENT DISCHARGE SUMMARY PATIENT: PRASANNA MCHUGH UNIT: [id number] ADM DATE: 07/13/18 AGE: 77 : 41 SEX: F ROOM/BED: D.6654 AUTHOR: WALKER,DOC PHYSICIAN: REFERRING PHYSICIAN: CHARLENE SAMS DO DATE OF SERVICE: 07/17/18 Discharge Plan Patient Name: PRASANNA MCHUGH Facility: [facility]:[place] : 1940 Planned Disposition: Home with Home Health Anticipated Discharge Date: 07/17/18 Discharge Date: Expected LOS: 4 Initial Reviewer: [email or web address] Initial Review Date: 07/16/2018 Generated: 07/17/18 6:06 pm Comments DCP- Discharge Planning Updated by [id number]: Gt Rosas on 07/16/18 3:[address] Patient Name: PRASANNA MCHUGH Admission Status: ER Accout number: [id number] Admission Date: 07-13-2018 : 1940 Admission Diagnosis:ACUTE RESPIRATORY DISTRESS Attending: CHARLENE SAMS Current LOS: 3 Anticipated DC Date: Planned Disposition: Home with Home Health Primary Insurance: MEDICARE A & B PLANNED EXTERNAL PROVIDER: [facility] Discharge Planning Comments: CM MET WITH PT IN ROOM TO DISCUSS DISCHARGE PLANNING AND NEEDS. PT REPORTS LIVING AT HOME DEPENDENTLY WITH ADULT DAUGHTER. PT HAS WALKER AND WHEELCHAIR WITH NO MEDICAL EQUIPMENT PROVIDER PREFERENCE. PT ALSO REPORTS HAVING HOME OXYGEN SHE USES AT NIGHT ONLY. PT HAS HOME HEALTH WITH [facility]. CM DICUSSED AVAILABILITY OF HOME HEALTH, REHAB SERVICES AND MEDICAL EQUIPMENT. PT DENIES DISCHARGE NEEDS, REPORTS HER DAUGHTER WILL PICK HER UP FOR DISCHARGE HOME. FOR DISCHARGE HOME AND RESUPTION OF HOME HEALTH SERVICES, NOTIFY [facility] AT [phone], FAX DISCHARGE INFORMATION TO [facility] AT [phone]. Assistant Finance Manager: Gt Rosas DCPIA - Discharge Planning Initial Assessment Updated by [email or web address]: Gt Rosas on 07/16/18 4:44 pm * Is the patient Alert and Oriented? Yes * How many steps to enter\exit or inside your home? * PCP DR. RAVI * Pharmacy [facility] * Preadmission Environment Home with Family * ADLs Partial Dependent * Partial ADLs (Assistance needed) Bathing Medication Management * Equipment Walker Wheelchair * Other Equipment NO MEDICAL EQUIPMENT PROVIDER PREFERENCE * List name and contact numbers for known caregivers / representatives who currently or will assist patient after discharge: BIBI SUE, DTR, * Verbal permission to speak to the caregivers and representatives has been obtained from the patient. N/A * Community resources currently utilized Home Health * Please name any agencies selected above. [facility] * Additional services required to return to the preadmission environment? No * Can the patient safely return to the preadmission environment? Yes * Has this patient been hospitalized within the prior 30 days at any hospital? No External Providers External Provider: OTHER-OTHER Next Contact Date: 07/17/2018 Service Request Date: Service Type: Resolution: Reviewer: Comments: Coverage Notice Reviewer: [id number] - Gt Rosas Notice Issued Date-Time: 07/17/2018 8:35 Notice Type: IM Discharge Notice Notice Delivered To: Patient Relationship to Patient: Ethnographer Name: Delivery Method: HAND - Hand Delivered Renetta Days: Prior Verbal Notification: Recipient Understood Notice: Yes Recipient Signature: Yes Med Rec Note Co-signed by Attending: Coverage Notice Comment: Last DP export: 07/17/18 3:57 p Patient Name: PRASANNA MCHUGH Page [id number] at 1706 All edits/amendments must be made on the electronic document DICTATION DATE: 07/17/181705 HEMATOLOGIST: BAYRON 07/17/181705 RPT#: [id number] DC DATE: STATUS: ADM IN [facility] [address] [place] [address] END OF REPORT
--- NOTE | 2018-07-17 17:15 | MORECARE ---
CASE MANAGEMENT DISCHARGE SUMMARY PATIENT: PRASANNA MCHUGH UNIT: [id number] ADM DATE: 07/13/18 AGE: 77 : 41 SEX: F ROOM/BED: D.0017 AUTHOR: WALKER,DOC PHYSICIAN: REFERRING PHYSICIAN: CHARELNE SAMS DO DATE OF SERVICE: 07/17/18 Discharge Plan Patient Name: PRASANNA MCHUGH Facility: [facility]:[place] : 1940 Planned Disposition: Home with Home Health Anticipated Discharge Date: 07/17/18 Discharge Date: Expected LOS: 4 Initial Reviewer: [email or web address] Initial Review Date: 07/16/2018 Generated: 07/17/18 6:15 pm Comments DCP- Discharge Planning Updated by [email or web address]: Gt Rosas on 07/17/18 4:[address] Patient Name: PRASANNA MCHUGH Encounter No: [id number] : 1940 Primary Insurance: MEDICARE A & B Anticipated DC Date: 07-17-2018 Planned Disposition: Home with Home Health External Planned Provider: [facility] DCP follow-up note: CM RECEIVED DISCHARGE ORDER, CALLED [facility], PT IS NOT ACTIVE WITH THEM. CM MET WITH PT AND DAUGHTER IN ROOM, DAUGHTER ADVISED PT IS LIVING IN [place], [place] AND HAS HOME HEALTH WITH [facility]. PT AND DAUGHTER DENY FURTHER DISCHARGE NEEDS TODAY. CM OBTAINED CONTACT NUMBER VIA INTERNET AND CALLED [facility], , SPOKE TO VIK[facility] WHO VERIFIED PT IS ACTIVE AND PLACED ON SCHEDULE FOR RESUMPTION OF CARE. CM FAXED DISCHARGE INFORMATION TO [facility], . PUMP OPERATOR NURSE NOTIFIED. Gt Rosas, CASE MANAGEMENT DCP- Discharge Planning Updated by [id number]: Gt Rosas on 07/16/18 3:[address] Patient Name: PRASANNA MCHUGH Admission Status: ER Accout number: [id number] Admission Date: 07-13-2018 : 1940 Admission Diagnosis:ACUTE RESPIRATORY DISTRESS Attending: CHARLENE SAMS Current LOS: 3 Anticipated DC Date: Planned Disposition: Home with Home Health Primary Insurance: MEDICARE A & B PLANNED EXTERNAL PROVIDER: [facility] Discharge Planning Comments: CM MET WITH PT IN ROOM TO DISCUSS DISCHARGE PLANNING AND NEEDS. PT REPORTS LIVING AT HOME DEPENDENTLY WITH ADULT DAUGHTER. PT HAS WALKER AND WHEELCHAIR WITH NO MEDICAL EQUIPMENT PROVIDER PREFERENCE. PT ALSO REPORTS HAVING HOME OXYGEN SHE USES AT NIGHT ONLY. PT HAS HOME HEALTH WITH [facility]. CM DICUSSED AVAILABILITY OF HOME HEALTH, REHAB SERVICES AND MEDICAL EQUIPMENT. PT DENIES DISCHARGE NEEDS, REPORTS HER DAUGHTER WILL PICK HER UP FOR DISCHARGE HOME. FOR DISCHARGE HOME AND RESUPTION OF HOME HEALTH SERVICES, NOTIFY [facility] AT [phone], FAX DISCHARGE INFORMATION TO [facility] AT [phone]. Business Agent: Gt Rosas [facility] Discharge Planning Initial Assessment Updated by [email or web address]: Gt Rosas on 07/16/18 4:44 pm * Is the patient Alert and Oriented? Yes * How many steps to enter\exit or inside your home? * PCP DR. RAVI * Pharmacy [facility] IN [facility] * Preadmission Environment Home with Family * ADLs Partial Dependent * Partial ADLs (Assistance needed) Bathing Medication Management * Equipment Walker Wheelchair * Other Equipment NO MEDICAL EQUIPMENT PROVIDER PREFERENCE * List name and contact numbers for known caregivers / representatives who currently or will assist patient after discharge: BIBI SUE, DTR, * Verbal permission to speak to the caregivers and representatives has been obtained from the patient. N/A * Community resources currently utilized Home Health * Please name any agencies selected above. [facility] * Additional services required to return to the preadmission environment? No * Can the patient safely return to the preadmission environment? Yes * Has this patient been hospitalized within the prior 30 days at any hospital? No Coverage Notice Reviewer: [id number] - Gt Rosas Notice Issued Date-Time: 07/17/2018 8:35 Notice Type: IM Discharge Notice Notice Delivered To: Patient Relationship to Patient: Route Inspector Name: Delivery Method: HAND - Hand Delivered Renetta Days: Prior Verbal Notification: Recipient Understood Notice: Yes Recipient Signature: Yes Med Rec Note Co-signed by Attending: Coverage Notice Comment: Last DP export: 07/17/18 4:06 p Patient Name: PRASANNA MCHUGH Page [id number] at 1715 All edits/amendments must be made on the electronic document DICTATION DATE: 07/17/181714 SOD STRIPPER: BAYRON 07/17/181714 RPT#: [id number] DC DATE: STATUS: ADM IN [facility] [address] [place] [address] END OF REPORT
--- NOTE | 2018-07-17 19:13 | NUR ---
DISCHARGE INSTRUCTIONS GIVEN AND SON VERBALIZES UNDERSTANDING. IV REMOVED WITH TIP INTACT. LEFT FLOOR VIA W/C WITH ALL PERSONAL BELONGINGS AND LEFT FACILITY VIA PRIVATE VEHICLE WITH FAMILY MEMBER.
== END 2018-07-17 19:15 | disposition home health service (06) | DRG 871 ==
LOC: D.ER 02:43 → D.M2 03:21 → D.ICU 03:21 → D.M2 07-15 13:39
PROVIDERS: Family Medicine; Internal Medicine Pulmonary Disease; ADMIT Family Medicine; ATTEND Family Medicine
DX: A41.9 Sepsis, unspecified organism (principal); J96.01 Acute respiratory failure with hypoxia; R65.21 Severe sepsis with septic shock; J18.1 Lobar pneumonia, unspecified organism; G92 Toxic encephalopathy; E43 Unspecified severe protein-calorie malnutrition; J44.1 Chronic obstructive pulmonary disease with (acute) exacerbation; J44.0 Chronic obstructive pulmonary disease with (acute) lower respiratory infection; I50.30 Unspecified diastolic (congestive) heart failure; K21.9 Gastro-esophageal reflux disease without esophagitis; D64.9 Anemia, unspecified; E88.09 Other disorders of plasma-protein metabolism, not elsewhere classified; F03.90 Unspecified dementia, unspecified severity, without behavioral disturbance, psychotic disturbance, mood disturbance, and anxiety; I11.0 Hypertensive heart disease with heart failure; M81.0 Age-related osteoporosis without current pathological fracture; I48.91 Unspecified atrial fibrillation; D69.6 Thrombocytopenia, unspecified; M19.90 Unspecified osteoarthritis, unspecified site; Z68.21 Body mass index [BMI] 21.0-21.9, adult; R91.8 Other nonspecific abnormal finding of lung field; K44.9 Diaphragmatic hernia without obstruction or gangrene; Z87.891 Personal history of nicotine dependence